=== PATIENT | male | born 1940 | race Caucasian/White ===

== ENCOUNTER 2018-10-15 05:17 | Emergency (ER) | payer MEDICARE, OTHER, SELFPAY ==
[2018-10-15 05:18] VITALS: BP 150/83; PULSE 78; RESP 16; TEMP 36.8; O2SAT 92; BMI 41.9
--- NOTE | 2018-10-15 05:19 | RAD_ITS ---
HISTORY: FELLPAIN AND DEFORMITY LT WRIST COMPARISON: None FINDINGS: XR left wrist 4 views Impacted, comminuted, Colles' fracture of the distal left radius. The main component of the fracture is transversely oriented at the metaphyseal region and an additional more distal component of the fracture extends intra-articular. Dorsal angulation and dorsal angulation of the major distal fracture fragment. Mildly displaced fracture through the base of the ulnar styloid process. No dislocation. Osteoarthritis with narrowing of the first carpometacarpal joint accompanied by periarticular ossicle formation. Possible remote ununited fracture of the dorsal margin of the carpal triquetrum. RAD/Wrist min 3 Views IMPRESSION: 1. Comminuted, intra-articular Colles' fracture of the distal left radius and mildly displaced fracture of the ulnar styloid process. 2. Possible remote ununited chip fracture of the carpal triquetrum. at 0556 Reported and signed by: Guillermo Duran MD Electronically Signed: Guillermo Duran, at 5:54 EDT Tel , Service support ,
--- NOTE | 2018-10-15 05:31 | ED.DCSUM_ITS ---
History of Present Illness Chief Complaint: Upper Extremity Injury Narrative: Patient stated that he came back from the bathroom this morning and lost his balance and fell onto his left wrist. He is having pain in the left wrist and forearm. He thinks he might of broke it. He is never injured it before. He is on Coumadin. He has a history of coronary artery disease and CABG. Denies any chest pain or shortness of breath or other symptoms. No home treatment other than putting ice on it. Current severity is moderate with movement. No significant pain at rest. Last INR was 2.2 2 weeks ago. Past Medical History - Allergies and Home Meds Allergies/Adverse Reactions: Allergies No Known Allergies Allergy (Verified 10/15/18 05:18) Primary Care Physician: Juancarlos Nielsen MD [STAFF PHYSICIAN] - Prior records reviewed: Yes Past Medical History: - - Hypertension, coronary artery disease, high cholesterol Surgical History: - Smoking Status: Former smoker Physical Exam Vital Signs/Narrative: Vital Signs Temp Pulse Resp BP Pulse Ox 10/15/18 05:18 98.3 F 78 16 150/83 H 92 General: Well nourished, Well developed, No Acute Distress Head: Normocephalic, Atraumatic Eyes: Perrl, EOMI ENT: Moist mucous membranes, No rhinorrhea Neck: Supple, Nontender Cardiovascular: Regular rate, Regular rhythm, No murmurs Respiratory: No distress, CTA bilaterally, Chest nontender Abdomen: Soft, Nontender, Nondistended, Normal bowel sounds Back: Nontender, Normal Inspection Extremities: No edema, Tenderness - Tenderness in the left wrist and left distal forearm. Positive soft tissue swelling. Distal neurovascular intact Skin: Normal color, No rash Neurological: Alert, Oriented x3, Cranial nerves II-XII grossly intact, Normal Strength, Normal Sensation Psychological: Normal affect, Normal Mood Diagnostic/Tx/Re-eval - Medical Decision Making Initial x-ray showed a intra-articular comminuted Colles' fracture with approximately 14 degrees of dorsal angulation. Discussed with orthopedics Dr. Nielsen. He asked me to do a hematoma block and reduce it. The patient cons ented to this. A 18-gauge needle was placed after his fracture region was washed with chlorhexidine. This was done in a sterile field. 8 cc of bupivacaine was placed in a hematoma block. He was placed in finger traps and the fracture was easily reduced. He has much better alignment. He is placed in a volar Ortho-Glass splint and will follow-up with orthopedics. His INR is 1.7. I wanted to make sure he was not supratherapeutic. He will adjust his Coumadin. ED Disposition - Plan for ED Patient: Diagnosis: Wrist fracture Instructions: ED Fx Colles Wrist Redu Requ Referrals: Juancarlos Nielsen MD [STAFF PHYSICIAN] -
[2018-10-15 05:54] LABS: International Normalized Ratio 1.7; Prothrombin Time (Protime)PT. 20.2 SECONDS (11.7-14.9)
--- NOTE | 2018-10-15 06:45 | RAD_ITS ---
HISTORY: post reduction. Left wrist COMPARISON: Left wrist 0530 hours FINDINGS: XR left wrist 3 views 0659 hours Comminuted, intra-articular Colles' fracture of the distal left radius status post closed reduction. Post reduction views show improved alignment with decreased dorsal angulation but persistent posterior displacement of the major distal radial fracture fragment. Redemonstration of a mildly displaced fracture through the base of the ulnar styloid process. Remote ununited fracture of the tip of the radial styloid process. Possible additional remote ununited fracture of the dorsal margin of the carpal triquetrum. RAD/Wrist min 3 Views IMPRESSION: 1. Left wrist Colles' fracture with improved alignment of the fracture status post closed reduction. Details above. at 0728 Reported and signed by: Guillermo Duran MD Electronically Signed: Guillermo Duran, at 7:27 EDT Tel , Service support ,
--- NOTE | 2018-10-15 06:51 | ED.RN ---
ASSISTED MD WITH FINGER TRAPS AND REDUCTION. PT HANDLED PROCEDURE WELL.
[2018-10-15] MEDS: Bupivacaine Mpf 0.5% 30 ML VIAL INFILT (06:53)
[2018-10-15 07:19] VITALS: BP 138/79; PULSE 67; RESP 18; O2SAT 96
== END 2018-10-15 07:26 ==
PROVIDERS: Emergency Provider Emergency Medicine; Family Provider Internal Medicine; PCP Internal Medicine
DX: S52.532A Colles' fracture of left radius, initial encounter for closed fracture (principal); I25.10 Atherosclerotic heart disease of native coronary artery without angina pectoris; Z95.1 Presence of aortocoronary bypass graft; I10 Essential (primary) hypertension; E78.00 Pure hypercholesterolemia, unspecified; Z87.891 Personal history of nicotine dependence; Z79.01 Long term (current) use of anticoagulants; Z79.899 Other long term (current) drug therapy; W18.30XA Fall on same level, unspecified, initial encounter; Y93.01 Activity, walking, marching and hiking; Y92.008 Other place in unspecified non-institutional (private) residence as the place of occurrence of the external cause; Y99.8 Other external cause status
CPT/HCPCS: 25605; 73110; 85610; 99282; A4216

== ENCOUNTER 2023-02-11 23:58 | Inpatient (IN) | payer MEDICARE, OTHER, SELFPAY ==
[2023-02-11 23:59] VITALS: BP 136/97; PULSE 88; RESP 31; TEMP 36.6; O2SAT 97; BMI 38.0
[2023-02-12] VITALS (40 sets, daily range): BP systolic 114–137; BP diastolic 54–75; PULSE 56–97; RESP 12–26; TEMP 36.1–36.6; O2SAT 10–99; BMI 35.5
--- NOTE | 2023-02-12 00:01 | RAD_ITS ---
INDICATION: Respiratory failure, bilateral rales, edema EXAMINATION/TECHNIQUE: X-RAY - XR Chest 1 View COMPARISON: None. FINDINGS: LINES/DEVICES: None. LUNGS: Patchy left basilar airspace opacity with trace bilateral effusions. No florid edema. No pneumothorax. MEDIASTINUM AND CARDIOVASCULAR STRUCTURES: Mild cardiomegaly. BONES AND SOFT TISSUES: Unremarkable. Sternotomy wires are midline and intact. RAD/Chest 1 View (Portable) IMPRESSION: Patchy left basilar atelectasis versus consolidative pneumonia. Correlate with exam. Radiographic follow-up recommended 6 weeks after treatment to ensure resolution. Cardiomegaly and sternotomy changes with trace effusions. Electronically Signed: Guillermo Evans MD at 1:01 EDT ,
[2023-02-12 00:13] LABS: Absolute Lymphocyte Count 1.38 X10^3/uL (0.83-4.51); Absolute Neutrophil Count 7.1 X10^3/uL (2.0-7.7); Basophil# 0.06 X10^3/uL; Basophil% 0.6 % (0-1); Eosinophil# 0.22 X10^3/uL; Eosinophils% 2.3 % (0-5); Hemoglobin 12.8 g/dL (13.0-16.5); Lymphocyte # 1.38 X10^3/ul (0.83-4.51); Lymphocyte % 14.2 % (19-41); Mean Corpuscular Hgb 29.1 pg (27.0-32.0); Mean Corpuscular Volume 90.9 fL (80-94); Mean Platelet Vol. 9.8 fl (6.2-12.0); Monocyte# 0.97 X10^3/uL; Monocyte% 9.9 % (0-10); NRBC Flagged by Analyzer 0 % (0-5); Neutrophil # 7.07 X10^3/uL (2.7-7.7); Neutrophil % 72.5 % (47-70); Platelet Count 190 K/mm3 (150-450); RBC Distribution Width CV 15.9 % (11.6-14.6); RBC Distribution Width SD 52.6 fl (35.1-43.9); White Blood Count 9.8 K/mm3 (4.4-11.0)
[2023-02-12 00:24] LABS: International Normalized Ratio 1.7; Prothrombin Time (Protime)PT. 20.3 SECONDS (11.7-14.9)
[2023-02-12 00:32] LABS: Anion Gap 6 (5-15); BUN 22 mg/dL (7-18); BUN/Creat Ratio 20.8 RATIO (10-20); Calcium,Total 8.7 mg/dL (8.5-10.1); Chloride 105 mmol/L (98-107); Creatinine, Serum 1.06 mg/dL (0.70-1.30); EST Glomerular Filtration Rate 71 mL/min (>60); Est Glom Filt Rate - Afr Amer 86 mL/min (>60); Estimated Creatinine Clearance 45.77 ml/min; Glucose 116 mg/dL (74-106); Potassium 3.5 mmol/L (3.5-5.1); Sodium Level 138 mmol/L (136-145); Troponin-I HS 20 pg/mL (3.0-78.0)
[2023-02-12] MEDS: Furosemide 40 MG/4 ML Vial IV ×3 (00:35→17:36)
--- NOTE | 2023-02-12 00:42 | EDS_ITS ---
HPI History of Present Illness Chief Complaint: Shortness of Breath Detail of Chief Complaint: Shortness of breath that started last evening. Informant: patient and EMS Onset/Context/Timing Onset: Yesterday Context: sudden Timing: Continuous and Waxes and wanes Quality: Positive for Dyspnea on exertion, Orthopnea and PND; Negative for Wheezing Current Severity: Moderate Maximum Severity: Severe Worsened by: Exertion and Lying flat Relieved by: Nothing Associated Symptoms cough; Negative for rhinorrhea, post nasal drip, ear pain, fever, sore throat, subjective, chills, sweats, clear sputum, white sputum, yellow sputum or green sputum Chest Pain: Positive for None Narrative Narrative: Patient is an 82-year-old male with history of congestive heart failure, hypertension, hypercholesterolemia, coronary artery bypass surgery x5 vessels, GERD, on and anticoagulant because of heart disease who presents with shortness of breath that started the past 24 hours. He has had significant swelling of his legs with increased orthopnea. He sleeps in a chair. He slept in a chair for some time; however, he reports needing to be more upright. He denies chest discomfort of any type. His pulse ox when squad arrived to his residence was 70% on room air. He arrived with a nonrebreather mask on and saturation of 96%. Patient denies headache, visual, ocular auditory symptoms. Patient denies infectious respiratory symptoms. Patient denies GI symptoms. Patient denies urologic symptoms. Patient denies neuro checks times. He reports he is on a diet however there is none listed on his medication list. He apparently is scheduled to see Dr. Marek Diaz. PE Risk Factors: Negative for Cancer, OCP + Smoking + > 35, Prior DVT or PE, Recent immobilization, Recent surgery or Recent travel Prior similar symptoms: No Recent Illness/Hospitalization: No [facility] Medical History (Updated 02/12/23 @ 02:[address] Suman Remy MD) ASHD (arteriosclerotic heart disease) Atrial fibrillation CHF (congestive heart failure) Glucose intolerance (impaired glucose tolerance) Meniere disease Mixed hyperlipidemia Myocardial infarct Osteoarthritis Home Medications amlodipine 10 mg tablet 10 mg PO DAILY 10/15/18 [History Last Taken Unknown] fluticasone propionate 50 mcg/actuation nasal spray,suspension 1 spray intranasal DAILY 10/15/18 [History Last Taken Unknown] lisinopril 40 mg tablet 40 mg PO DAILY 10/15/18 [History Last Taken Unknown] metoprolol succinate 100 mg tablet,extended release 24 hr 100 mg PO DAILY 10/15/18 [History Last Taken Unknown] nitroglycerin 0.4 mg sublingual tablet 0.4 mg sublingual PRN PRN CHEST PAIN 10/15/18 [History Last Taken Unknown] omeprazole 20 mg capsule,delayed release 20 mg PO DAILY 10/15/18 [History Last Taken Unknown] warfarin 5 mg tablet () 5 mg PO DAILY 10/15/18 [History Last Taken Unknown] escitalopram oxalate 10 mg tablet 10 mg PO DAILY 02/12/23 [History Last Taken Unknown] furosemide 40 mg tablet 40 mg PO DAILY 02/12/23 [History Last Taken Unknown] pravastatin 40 mg tablet 40 mg PO DAILY 02/12/23 [History Last Taken Unknown] triamterene 37.5 mg-hydrochlorothiazide 25 mg tablet 1 tab PO DAILY 02/12/23 [History Last Taken Unknown] Allergy/AdvReac Type Severity Reaction Status Date / Time cephalexin [From Keflex] AdvReac Mild Diarrhea Verified 02/12/23 00:04 labetalol [From Trandate] AdvReac Mild Angioedema Verified 02/12/23 00:56 prochlorperazine AdvReac Mild Other Verified 02/12/23 00:56 [From Compazine] ibuprofen AdvReac Other Verified 02/12/23 00:56 Surgical History no surgical history no surgical history (5 vessel bypass surgery) Social History Smoking Status: Never smoker ROS ROS ED Constitutional Constitutional ED: Denies chills, fever(s), sweats or weight loss Eyes Eyes: Denies blurry vision, change in vision or diplopia ENT ENT ED: Denies ear pain, rhinorrhea or sore throat Cardiovascular Cardiovascular: Reports orthopnea and paroxysmal nocturnal dyspnea; Denies chest pain, palpitations or racing heartbeat Respiratory/Chest Respiratory/Chest: Reports dyspnea, dyspnea on exertion, orthopnea and paroxysmal nocturnal dyspnea; Denies cough Gastrointestinal Gastrointestinal: Denies abdominal pain, constipation, diarrhea, melena, nausea or vomiting Genitourinary Genitourinary ED: Denies dysuria, hematuria or urinary frequency Musculoskeletal Musculoskeletal: Denies arthralgias, back pain, myalgias or neck pain Integumentary Denies Abrasions or rash Neurologic Neurologic: Denies headache(s), paresthesias or weakness Endocrine Endocrinology: Denies cold intolerance or heat intolerance Hematologic/Lymphatic Hematologic/Lymphatic: Denies easy bleeding or easy bruising EXAM Physical Exam Const Vital Signs: 02/11/23 23:59 02/12/23 00:04 02/12/23 00:06 Temperature 97.8 F Temperature Source Temporal Pulse Rate 88 81 Respiratory Rate 31 H 26 H Respiratory Effort Short of Breath Respiratory Depth Shallow Respiratory Pattern Tachypnea Tachypnea Blood Pressure 136/97 H Blood Pressure Mean 110 Blood Pressure Source Blood Pressure Position Blood Pressure Location Pulse Ox 97 96 Oxygen Delivery Method Non-Rebreather Nasal Cannula Oxygen Flow Rate (L/min) 10 97 Fraction of Inspired Oxygen (FIO2) 40 02/12/23 00:33 02/12/23 00:43 02/12/23 00:40 Temperature Temperature Source Pulse Rate 71 71 Respiratory Rate 22 H 21 H Respiratory Effort Respiratory Depth Respiratory Pattern Tachypnea Blood Pressure 122/63 H 124/70 H Blood Pressure Mean 82 88 Blood Pressure Source Monitor Blood Pressure Position Sitting Blood Pressure Location Left Arm Pulse Ox 98 97 Oxygen Delivery Method Bi-pap Oxygen Flow Rate (L/min) Fraction of Inspired Oxygen (FIO2) 30 02/12/23 01:00 02/12/23 01:38 Temperature Temperature Source Pulse Rate 67 65 Respiratory Rate 20 H 16 Respiratory Effort Respiratory Depth Respiratory Pattern Blood Pressure 127/62 H 116/66 Blood Pressure Mean 83 82 Blood Pressure Source Blood Pressure Position Blood Pressure Location Pulse Ox 98 94 Oxygen Delivery Method Bi-pap Bi-pap Oxygen Flow Rate (L/min) Fraction of Inspired Oxygen (FIO2) Positive well nourished, well developed and obese Constitutional Narrative: When the nonrebreather mask was removed to place on our monitor and obtain EKG patient's breathing became labored. He was gasping. General Appearance ED: well developed; Negative for NAD or pallor Nutritional Appearance: obese HEENT Reports moist mucous membranes atraumatic and trauma Eyes PERRL and EOMs intact bilaterally General Eye ED: Negative for pale conjunctiva or scleral icterus Neck no lymphadenopathy, supple, no meningeal signs and no JVD Neck Narrative: Unable to determine if patient has JVD due to body habitus. Resp No normal respiratory effort and No clear to auscultation bilaterally Auscultation: rales diffuse (Bilaterally) Cardio regular rate, S1 normal heart sound, S2 normal heart sound and no murmurs Rhythm: abnormal rhythm ectopic beats GI non-tender, non-distended and no masses Auscultation: normoactive bowel sounds Palpation: soft Back/Spine no CVA tenderness Extremity Negative for normal to inspection Extremity Narrative: Patient has marked pitting edema of both legs and feet. Unable to appreciate DP pulse because of the amount Eli. General Extremety ED: Yes edema; Negative for tenderness General Extremity: edema Neuro oriented x3, CN's II-XII intact bilaterally and no sensory deficits noted Wayne Coma Scale: document GCS findings Spontaneous Obeys Commands Oriented 15 Sensorium / Orientation: alert Psych mental status grossly normal Skin no wounds and skin turgor normal General Skin Exam: Negative for jaundice or pallor Lesions: no lesions Rashes: no rashes MDM MDM MDM Narrative Medical decision making narrative: Clinically patient has respiratory failure due to congestive heart failure. Will obtain EKG to evaluate for acute ischemia. Troponin was ordered as well. CBC to rule out anemia. Clinically does not appear anemic. BMP to assess renal function. PT/INR since he is on Coumadin. Chest x-ray to confirm suspicion of congestive heart failure. He was placed on BiPAP and nitroglycerin drip. Is placed on nitroglycerin drip for preload reduction. History & Record Review Discussion w/independent historian: Patient Lab Data Attestation: I reviewed the patient's lab results. Lab results narrative: White count, differential are unremarkable. There is slight elevation of new wheels. Basic metabolic panel is unremarkable. Troponin is 20. BNP is pending. Labs: Laboratory Results - last 24 hr 02/12/23 00:07 WBC 9.8 RBC 4.40 L Hgb 12.8 L Hct 40.0 MCV 90.9 MCH 29.1 MCHC 32.0 RDW Std Deviation 52.6 H RDW Coeff of Kate 15.9 H Plt Count 190 MPV 9.8 Immature Gran % (Auto) 0.500 Neut % (Auto) 72.5 H Lymph % (Auto) 14.2 L [place] % (Auto) 9.9 Eos % (Auto) 2.3 Baso % (Auto) 0.6 Absolute Neuts (auto) 7.1 Absolute Lymphs (auto) 1.38 Nucleated RBC % 0 PT 20.3 H INR 1.7 Sodium 138 Potassium 3.5 Chloride 105 Carbon Dioxide 27.0 Anion Gap 6 BUN 22 H Creatinine 1.06 Estim Creat Clear Calc 45.77 Est GFR (MDRD) Af Amer 86 Est GFR (MDRD) Non-Af 71 BUN/Creatinine Ratio 20.8 H Glucose 116 H Calcium 8.7 Troponin I High Sens 20 B-Natriuretic Peptide 933.9 H Radiography Chest X-Ray - ED: 1 View and Read by ED Physician (Borderline cardiomegaly. Median sternotomy wires noted. Evidence of heart failure. Osseous structures are unremarkable.) Diagnostic Testing: Clinical Impression(s) from Imaging Studies Chest X-Ray 02/12/23 00:01 IMPRESSION: Patchy left basilar atelectasis versus consolidative pneumonia. Correlate with exam. Radiographic follow-up recommended 6 weeks after treatment to ensure resolution. Cardiomegaly and sternotomy changes with trace effusions. Electronically Signed: Guillermo Evans MD at 1:01 EDT Reading Location ID and State: [facility] / [place] Tel , Service support , The intervention of the x-ray by radiologist reveals cardiomegaly with trace effusions. He felt there was basilar atelectasis versus consolidation. Clinically patient is in heart failure with orthopnea, PND, pedal edema and rales noted the entire right and left thorax. In my opinion patient is in congestive heart failure and does not have pneumonia. EKG Initial EKG: Attestation: I personally reviewed and interpreted this EKG as follows: Interpretation: Sinus Rhythm (Out of rate is 79. There is decreased anterior force. MN interval is 182 ms. Cures duration 94 ms. QT duration 432 ms. [place] is normal. There are frequent premature ventricular complexes noted. There is no obvious acute ischemic changes noted.) Treatment and Re-Evaluation :: Patient was reassessed at 0211. Patient's breathing has improved. He is no longer labored. Rate is 19. Oxygen saturation is 93 to 94%. Heart rate has improved. Patient reports he feels better. Critical Care Time Critical Care Time: Yes Critical care time (excluding procedures): 30-74 minutes (34), Including time spent: (History, physical, documentation, discussion with paramedics, interpretation of laboratory results and images, treatment for acute decompensation of congestive heart failure with BiPAP and nitro drip.), Discussing w/Patient &/or Family/[facility], Discussing w/Consultants and Arranging Admission or Transfer Discharge Plan Triage Chief Complaint: Shortness of Breath ED Provider: Suman Remy Dx/Rx/DC Orders Clinical Impression: Acute respiratory failure with hypoxia, Hypertension, Hyperlipidemia, Congestive heart failure, History of coronary artery disease Prescriptions: No Action metoprolol succinate 100 MG tablet extended release 24 hr 100 mg PO DAILY amlodipine 10 MG tablet 10 mg PO DAILY warfarin [Jantoven] 5 MG tablet 5 mg PO DAILY nitroglycerin 0.4 MG tablet, sublingual 0.4 mg sublingual PRN PRN (Reason: CHEST PAIN) omeprazole 20 MG capsule 20 mg PO DAILY lisinopril 40 MG tablet 40 mg PO DAILY fluticasone propionate 1 SPRAY spray,suspension 1 spray intranasal DAILY escitalopram oxalate 10 mg tablet 10 mg PO DAILY Patient Comments: Take 1 tablet by mouth once daily. furosemide 40 mg tablet 40 mg PO DAILY Patient Comments: Take 1 tablet by mouth once daily. pravastatin 40 mg tablet 40 mg PO DAILY Patient Comments: Take 1 tablet by mouth daily at bedtime. For cholesterol triamterene-hydrochlorothiazid 37.5-25 mg tablet 1 tab PO DAILY Patient Comments: TAKE 1 TABLET BY MOUTH DAILY Primary Care Provider: Florentino Bernard Referrals: Florentino Bernard MD [Primary Care Provider] - Disposition Disposition: Acute Care Hospital [facility]
[2023-02-12] MEDS: Nitroglycerin Infusion 250 ML 6 MG CONT INF (00:43)
[2023-02-12 01:59] LABS: BNP,B-Type NATRIURETIC PEPTIDE 933.9 pg/mL (0-100)
--- NOTE | 2023-02-12 02:12 | PCM.HP.STD ---
HPI - General General Date of Admission: 02/12/23 Date of Service: 02/12/23 Chief Complaint: Shortness of breath HPI Narrative DESI SANDERS, is a 82 M with a significant history of CAD status post CABG; congestive heart failure; atrial fibrillation and M?ni?re's disease who presented with a 2-day history of intermittent shortness of breath and progressively worsening shortness of breath that started 2 days before presentation. Associated with symptoms is swelling of his bilateral legs that has been going on for about 1 week. Also patient has had paroxysmal nocturnal dyspnea. Patient has chronic orthopnea. Patient was brought to the hospital by paramedics. Reportedly when paramedics got to patient both patient was cyanotic. Patient was placed on nonrebreather and brought to the emergency department. At the emergency department because patient hypoxia was persistent patient was transitioned onto BiPAP. [facility] Medical History (Updated 02/12/23 @ 03:[address] Kyle Werner MD) ASHD (arteriosclerotic heart disease) Atrial fibrillation CHF (congestive heart failure) Glucose intolerance (impaired glucose tolerance) Meniere disease Mixed hyperlipidemia Myocardial infarct Osteoarthritis Home Medications amlodipine 10 mg tablet 10 mg PO DAILY 10/15/18 [History Last Taken Unknown] fluticasone propionate 50 mcg/actuation nasal spray,suspension 1 spray intranasal DAILY 10/15/18 [History Last Taken Unknown] lisinopril 40 mg tablet 40 mg PO DAILY 10/15/18 [History Last Taken Unknown] metoprolol succinate 100 mg tablet,extended release 24 hr 100 mg PO DAILY 10/15/18 [History Last Taken Unknown] nitroglycerin 0.4 mg sublingual tablet 0.4 mg sublingual PRN PRN CHEST PAIN 10/15/18 [History Last Taken Unknown] omeprazole 20 mg capsule,delayed release 20 mg PO DAILY 10/15/18 [History Last Taken Unknown] warfarin 5 mg tablet (Jultoven) 5 mg PO DAILY 10/15/18 [History Last Taken Unknown] escitalopram oxalate 10 mg tablet 10 mg PO DAILY 02/12/23 [History Last Taken Unknown] furosemide 40 mg tablet 40 mg PO DAILY 02/12/23 [History Last Taken Unknown] pravastatin 40 mg tablet 40 mg PO DAILY 02/12/23 [History Last Taken Unknown] triamterene 37.5 mg-hydrochlorothiazide 25 mg tablet 1 tab PO DAILY 02/12/23 [History Last Taken Unknown] Allergy/AdvReac Type Severity Reaction Status Date / Time cephalexin [From Keflex] AdvReac Mild Diarrhea Verified 02/12/23 00:04 labetalol [From Trandate] AdvReac Mild Angioedema Verified 02/12/23 00:56 prochlorperazine AdvReac Mild Other Verified 02/12/23 00:56 [From Compazine] ibuprofen AdvReac Other Verified 02/12/23 00:56 Family History (Updated 02/12/23 @ 03:[address] Kyle Werner MD) Other Colon cancer Heart disease Surgical History (Updated 02/12/23 @ 03:[address] Kyle Werner MD) Hx of CABG Surgical History no surgical history Social History Smoking Status: Never smoker ROS ROS Narrative Pertinent positives and pertinent negatives as noted in HPI. All other systems were reviewed and are negative Vital Signs Vital Signs Vital Signs: 02/11/23 23:59 02/12/23 00:04 02/12/23 00:06 Temperature 97.8 F Temperature Source Temporal Pulse Rate 88 81 Respiratory Rate 31 H 26 H Respiratory Effort Short of Breath Respiratory Depth Shallow Respiratory Pattern Tachypnea Tachypnea Blood Pressure 136/97 H Blood Pressure Mean 110 Blood Pressure Source Blood Pressure Position Blood Pressure Location Pulse Ox 97 96 Oxygen Delivery Method Non-Rebreather Nasal Cannula Oxygen Flow Rate (L/min) 10 97 Fraction of Inspired Oxygen (FIO2) 40 02/12/23 00:33 02/12/23 00:43 02/12/23 00:40 Temperature Temperature Source Pulse Rate 71 71 Respiratory Rate 22 H 21 H Respiratory Effort Respiratory Depth Respiratory Pattern Tachypnea Blood Pressure 122/63 H 124/70 H Blood Pressure Mean 82 88 Blood Pressure Source Monitor Blood Pressure Position Sitting Blood Pressure Location Left Arm Pulse Ox 98 97 Oxygen Delivery Method Bi-pap Oxygen Flow Rate (L/min) Fraction of Inspired Oxygen (FIO2) 30 02/12/23 01:00 02/12/23 01:38 Temperature Temperature Source Pulse Rate 67 65 Respiratory Rate 20 H 16 Respiratory Effort Respiratory Depth Respiratory Pattern Blood Pressure 127/62 H 116/66 Blood Pressure Mean 83 82 Blood Pressure Source Blood Pressure Position Blood Pressure Location Pulse Ox 98 94 Oxygen Delivery Method Bi-pap Bi-pap Oxygen Flow Rate (L/min) Fraction of Inspired Oxygen (FIO2) Weight Weight: 100.4 kg Body Mass Index (BMI) 38.0 Physical Exam Narrative Physical exam: General: Well-nourished, well-developed. Head: Normocephalic, atraumatic, no tenderness Eyes: Vision is grossly intact. EOMI ENT, no trauma, moist mucous membranes, no rhinorrhea Neck: Nontender, No thyromegaly. CVS: Regular rate and rhythm. S1-S2 present. No murmur, gallop or rub. Respiratory : Fine Rales bilaterally and coarse Rales at the bases. Abdomen: Obese abdomen. Soft, nontender. : Deferred Back: Nontender, no CVA tenderness. Extremities: Bilateral lower extremity edema. Nontender full range of motion, no trauma Skin: Normal color, no trauma, abrasions Neuro: Alert, oriented, cranial nerves II through XII grossly intact. Psychiatry: Normal mood. Normal affect. Not depressed. Not anxious. Results Lab / Micro Data 02/12/23 00:07 02/12/23 00:07 Labs: Laboratory Results - last 24 hr 02/12/23 00:07: WBC 9.8, RBC 4.40 L, Hgb 12.8 L, Hct 40.0, MCV 90.9, MCH 29.1, MCHC 32.0, RDW Std Deviation 52.6 H, RDW Coeff of Kate 15.9 H, Plt Count 190, MPV 9.8, Immature Gran % (Auto) 0.500, Neut % (Auto) 72.5 H, Lymph % (Auto) 14.2 L, [place] % (Auto) 9.9, Eos % (Auto) 2.3, Baso % (Auto) 0.6, Absolute Neuts (auto) 7.1, Absolute Lymphs (auto) 1.38, Nucleated RBC % 0, PT 20.3 H, INR 1.7, Sodium 138, Potassium 3.5, Chloride 105, Carbon Dioxide 27.0, Anion Gap 6, BUN 22 H, Creatinine 1.06, Estim Creat Clear Calc 45.77, Est GFR (MDRD) Af Amer 86, Est GFR (MDRD) Non-Af 71, BUN/Creatinine Ratio 20.8 H, Glucose 116 H, Calcium 8.7, Troponin I High Sens 20, B-Natriuretic Peptide 933.9 H Radiology Impression Chest X-Ray 02/12/23 00:01 IMPRESSION: Patchy left basilar atelectasis versus consolidative pneumonia. Correlate with exam. Radiographic follow-up recommended 6 weeks after treatment to ensure resolution. Cardiomegaly and sternotomy changes with trace effusions. Electronically Signed: Guillermo Evans MD at 1:01 EDT , Assessment & Plan Assessment/Plan (1) Congestive heart failure: QUALIFIERS: Heart failure chronicity: acute on chronic Heart failure type: unspecified Qualified Code(s): I50.9 - Heart failure, unspecified (2) Acute respiratory failure with hypoxia: (3) Hypertension: QUALIFIERS: Hypertension type: unspecified Qualified Code(s): I10 - Essential (primary) hypertension PLAN: Plan Acute hypoxemic respiratory failure Likely secondary to exacerbation of heart failure (reduced or preserved undefined.) Place on monitored bed on PCU stepdown Weight on admission to the floor; and then daily Strict I&O's Impression of chest x-ray by radiology:Patchy left basilar atelectasis versus consolidative pneumonia. Correlate with exam. Radiographic follow-up recommended 6 weeks after treatment to ensure resolution. Chest x-ray interpreted myself showed bilateral infiltrates with blunting of bilateral costophrenic angles. Cardiomegaly and sternotomy changes with trace effusions. BNP on presentation was 933.9. Reports that he had an echocardiogram in less than 1 week. Order to obtain echo from [facility] Physician placed. Monitor electrolytes and renal function Trend blood pressure Beta-armond and BUZZ inhibitor continued. Home p.o. Lasix held. IV Lasix ordered. Potassium supplementation ordered. On presentation potassium was 3.5. Trend. Buzz wrap to bilateral lower extremities Fluid restriction of 1500 mls daily Continue on BiPAP started emergency department. When off BiPAP transition to cardiac diet. Hypertension Stable on nitroglycerin drip started at the emergency department, continue. Home amlodipine continued. Lisinopril and metoprolol continued. Triamterene and hydrochlorothiazide continued. Trend blood pressures. Paroxysmal A-fib/hypercoagulable state due to A-fib EKG showed sinus rhythm with PVCs on presentation. INR is subtherapeutic. Escalate dose of Coumadin. Lovenox twice daily ordered. Trend INR. DVT prophylaxis: Lovenox and Coumadin as above. Time spent in the patient's overall evaluation,decision-making process, review of diagnostic data, adjustment of management, discussion with other providers, nursing nursing and ancillary staff involved in patient's care documentation, 65 minutes. Charges/Coding Visit Charges Inpatient E&M: 87847 Init Hosp L3
[2023-02-12 04:25] LABS: Hematocrit 38.7 % (40-54); Hemoglobin 12.4 g/dL (13.0-16.5); Mean Corpuscular Volume 90.4 fL (80-94); Mean Platelet Vol. 9.9 fl (6.2-12.0); Platelet Count 183 K/mm3 (150-450); RBC Distribution Width CV 15.7 % (11.6-14.6); RBC Distribution Width SD 51.5 fl (35.1-43.9); Red Blood Count 4.28 M/mm3 (4.6-6.2); White Blood Count 8.4 K/mm3 (4.4-11.0)
[2023-02-12 04:37] LABS: International Normalized Ratio 1.7; Prothrombin Time (Protime)PT. 19.8 SECONDS (11.7-14.9)
[2023-02-12 04:45] LABS: Troponin-I HS 22 pg/mL (3.0-78.0)
[2023-02-12] MEDS: Enoxaparin 100 MG/ML Syringe SC ×2 (05:24→17:36)
[2023-02-12 06:29] LABS: ALB/GLOB Ratio 0.9 RATIO (0.9-2.4); AST(SGOT) 12 U/L (15-37); Alanine Aminotransfer ALT/SGPT 16 U/L (16-61); Alkaline Phosphatase 76 U/L (45-117); Anion Gap 7 (5-15); BUN 20 mg/dL (7-18); BUN/Creat Ratio 19.4 RATIO (10-20); Calcium,Total 8.1 mg/dL (8.5-10.1); Chloride 107 mmol/L (98-107); Creatinine, Serum 1.03 mg/dL (0.70-1.30); EST Glomerular Filtration Rate 74 mL/min (>60); Est Glom Filt Rate - Afr Amer 89 mL/min (>60); Estimated Creatinine Clearance 48.93 ml/min; Globulin 3.4 g/dL (2.2-4.2); Glucose 112 mg/dL (74-106); Potassium 3.3 mmol/L (3.5-5.1); Protein, Total 6.4 g/dL (6.4-8.2); Sodium Level 141 mmol/L (136-145); Troponin-I HS 19 pg/mL (3.0-78.0)
[2023-02-12] MEDS: Potassium Chloride Oral Tablet 20 MEQ 40 MEQ PO (09:33)
[2023-02-12] MEDS: Triamterene 37.5MG/Hctz 25MG Capsule 1 CAP PO (09:33)
[2023-02-12] MEDS: Lisinopril 40 MG Tablet PO (09:33)
[2023-02-12] MEDS: Pravastatin 40 MG Tablet PO (09:33)
[2023-02-12] MEDS: amLODIPine 10 MG Tablet PO (09:34)
[2023-02-12] MEDS: Pantoprazole Sodium 20 MG Tablet PO (09:34)
[2023-02-12] MEDS: Metoprolol(XL)Succ 100 MG Tablet PO (09:34)
[2023-02-12] MEDS: Fluticasone 0.05% 1 SPRAY NASAL.SRY NASAL (09:35)
[2023-02-12] MEDS: Escitalopram Oxalate 10 MG Tablet PO (09:35)
[2023-02-12 10:17] LABS: Troponin-I HS 18 pg/mL (3.0-78.0)
--- NOTE | 2023-02-12 10:30 | CASEMGMT ---
DAMON JOSEPH Face to Face with patient for initial transition planning/care coordination assessment. RN OPAL introduced self and role at [facility]. Patient lying in bed, alert and oriented. Patient willing to participate in assessment and is able to answer all questions appropriately. Care providers, pharmacy, and demographics verified. Patient wishes to discharge home, will monitor progress with care, possible HHC at discharge. Patient states he has no further needs or concerns at this time. CM to follow for discharge planning needs that may arise. PCP: Marco Antonio Specialists: none Preferred Pharmacy: [facility] Insurance: [facility] [place] Pres[place] Benefit: yes Living Will/HPOA: yes, Rosa Kuo LNOK: Living Arrangements: Patient lives with in a 2 story home with bed and bath on first floor, 2 steps to enter the home. Patient states he is independent at home. Transportation: self, DME/HHC: Patient has rasied toilet, cane, and walker at home. Patient is currently requiring oxygen, no home oxygen, will monitor for home oxygen at discharge. Patient prefers [employer] for DME. No previous HHC or SNF Disposition Plan: Patient to discharge home with family support and follow-up plans in place. Will monitor for home oxygen and HHC. Cecilia FONG, RN, CM
--- NOTE | 2023-02-12 16:43 | PCM.HOSP.N ---
Hospitalist Note Seen and examined today, I talked with his daughter and his who are in the room at the time my examination this afternoon, patient is currently on 4 L of oxygen via nasal cannula and appears comfortable. Echocardiogram which was done early in January of this year by his PCP showed a decreased EF at 40 to 45%, severe pulmonary hypertension, and moderate mitral regurg. I have elected to take the patient off his nitroglycerin drip at this time, I have added Aldactone and he will remain on IV Lasix, metoprolol, and lisinopril. Daughter had a question about the patient undergoing a heart cath during this admission, I told her that it was not necessary at this time and that his congestive heart failure needs to be stabilized and that I would recommend that he undergo a stress test when he was in stable condition in the near future. Patient does have an appointment with Dr. Diaz in March of this year. Patient's labs will be rechecked tomorrow.
[2023-02-12] MEDS: Spironolactone 25 MG Tablet PO (17:35)
[2023-02-12] MEDS: 0.9% Saline Lock 10 ML Syringe IV (17:40)
[2023-02-13] VITALS (16 sets, daily range): BP systolic 111–144; BP diastolic 60–105; PULSE 62–84; RESP 12–22; TEMP 36.1–37; O2SAT 88–97; BMI 35.4
[2023-02-13] MEDS: Albuterol 2.5 MG/3 ML VIAL.NEB. INHALATION (00:01)
[2023-02-13] MEDS: Enoxaparin 100 MG/ML Syringe SC ×2 (05:09→17:50)
[2023-02-13 05:49] LABS: International Normalized Ratio 1.6; Prothrombin Time (Protime)PT. 18.7 SECONDS (11.7-14.9)
[2023-02-13 06:10] LABS: Anion Gap 8 (5-15); BUN 22 mg/dL (7-18); BUN/Creat Ratio 21.6 RATIO (10-20); Calcium,Total 8.7 mg/dL (8.5-10.1); Chloride 104 mmol/L (98-107); Creatinine, Serum 1.02 mg/dL (0.70-1.30); EST Glomerular Filtration Rate 74 mL/min (>60); Est Glom Filt Rate - Afr Amer 90 mL/min (>60); Estimated Creatinine Clearance 49.41 ml/min; Glucose 102 mg/dL (74-106); Potassium 3.5 mmol/L (3.5-5.1); Sodium Level 140 mmol/L (136-145)
[2023-02-13] MEDS: Fluticasone 0.05% 1 SPRAY NASAL.SRY NASAL (08:21)
[2023-02-13] MEDS: Escitalopram Oxalate 10 MG Tablet PO (08:22)
[2023-02-13] MEDS: Lisinopril 40 MG Tablet PO (08:22)
[2023-02-13] MEDS: Potassium Chloride Oral Tablet 20 MEQ 40 MEQ PO (08:22)
[2023-02-13] MEDS: amLODIPine 10 MG Tablet PO (08:22)
[2023-02-13] MEDS: Pantoprazole Sodium 20 MG Tablet PO (08:22)
[2023-02-13] MEDS: Pravastatin 40 MG Tablet PO (08:22)
[2023-02-13] MEDS: Metoprolol(XL)Succ 100 MG Tablet PO (08:22)
[2023-02-13] MEDS: Furosemide 40 MG/4 ML Vial IV (08:23)
[2023-02-13] MEDS: Spironolactone 25 MG Tablet PO (08:23)
--- NOTE | 2023-02-13 08:55 | RAD_ITS ---
INDICATION: chf EXAMINATION/TECHNIQUE: X-RAY - XR Chest 2 Views COMPARISON: February 12, 2023 FINDINGS: LINES/DEVICES: None. LUNGS: There is persistent bibasilar airspace disease. There is mild pulmonary vascular congestion. There is a small left pleural effusion. No pneumothorax. MEDIASTINUM AND CARDIOVASCULAR STRUCTURES: Heart is enlarged. Central airways and mediastinal contour are unremarkable. BONES AND SOFT TISSUES: Unremarkable. RAD/Chest PA and Lateral IMPRESSION: Stable appearing bibasilar airspace disease and cardiomegaly. Stable mild pulmonary vascular congestion. Stable small left effusion. Electronically Signed: Enzo Singh, at 9:07 EDT ,
[2023-02-13] MEDS: Furosemide 500 MG in Empty Viaflex 50 mL 1 EACH CONT INF (14:54)
[2023-02-13] MEDS: 0.9% Saline Lock 10 ML Syringe IV (15:02)
--- NOTE | 2023-02-13 17:51 | PN.HOSP_ITS ---
Reason for Visit Reason for Visit: Diagnoses Essential (primary) hypertension (02/12/23) Heart failure, unspecified (02/12/23) Acute respiratory failure with hypoxia (02/12/23) Subjective Subjective Patient was seen and examined today, this morning he was on 6 L of nasal cannula oxygen, I made a determination at that time to place him on continuous IV Lasix. Patient's chest x-ray continues to show vascular congestion. Objective Data Objective Data Vital Signs: Vital Signs Temp Pulse Resp BP Pulse Ox O2 Del Method O2 Flow Rate 98.0 F 69 15 119/61 94 Nasal Cannula 4 02/13/23 14:51 02/13/23 14:51 02/13/23 14:51 02/13/23 14:51 02/13/23 15:13 02/13/23 15:13 02/13/23 15:13 FiO2 35 02/13/23 04:09 Oxygen Flow Rate (L/min) 4 Oxygen Delivery Method Nasal Cannula Weight: 96.4 kg Body Mass Index (BMI) 35.4 Intake & Output: Intake and Output for Last 24 Hours 02/11/23 02/12/23 02/13/23 23:59 23:59 23:59 Intake Total 590.3 / 590.3 480 / 480 Output Total 2400 / 2400 1250 / 1250 Balance -1809.7 / -1809.7 -770 / -770 Lab / Micro Data 02/12/23 04:19 02/13/23 05:30 Labs: Laboratory Results - last 24 hr 02/13/23 05:30: PT 18.7 H, INR 1.6, Sodium 140, Potassium 3.5, Chloride 104, Carbon Dioxide 28.0, Anion Gap 8, BUN 22 H, Creatinine 1.02, Estim Creat Clear Calc 49.41, Est GFR (MDRD) Af Amer 90, Est GFR (MDRD) Non-Af 74, BUN/Creatinine Ratio 21.6 H, Glucose 102, Calcium 8.7 Radiography Diagnostic Testing: Radiology Impression Chest X-Ray 02/13/23 08:55 IMPRESSION: Stable appearing bibasilar airspace disease and cardiomegaly. Stable mild pulmonary vascular congestion. Stable small left effusion. Electronically Signed: Enzo Singh, at 9:07 EDT , Physical Exam Const alert, oriented x3, no apparent distress and average body habitus General Appearance: cooperative, well kempt and well developed Orientation / Consciousness: awake, oriented to person, oriented to place and oriented to time HEENT normocephalic, head/scalp atraumatic and moist oral mucous membranes Eyes PERRL, EOMs intact bilaterally and conjunctivae normal Neck supple, no JVD, thyroid normal and no carotid bruits General: trachea midline Resp normal respiratory effort, no retractions and no use of accessory muscles Resp Narrative: Decreased breath sounds were noted bilaterally over the lower lung field Auscultation: rales localized (Over the lower lobes bilaterally); Negative for rhonchi or wheezes Cardio regular rate, regular rhythm, S1 normal heart sound, S2 normal heart sound, no rub and no gallops Cardio Narrative: Extrasystolic beats are noted GI normal to inspection, nondistended, normoactive bowel sounds, soft to palpation, non-tender and non-distended Extremity Extremity Narrative: Generalized lower leg edema is noted bilaterally Skin no rashes or lesions noted General Skin Exam: no breakdown Neuro oriented x3, CN's II-XII intact bilaterally, moves all extremities, no focal motor deficits and no sensory deficits noted Sensorium / Orientation: awake, alert, oriented to person, oriented to place and oriented to time Speech: speech normal Psych affect normal Assessment & Plan Assessment/Plan (1) Congestive heart failure: QUALIFIERS: Heart failure type: unspecified Heart failure chronicity: acute on chronic Qualified Code(s): I50.9 - Heart failure, unspecified PLAN: Plan 1. Acute on chronic systolic congestive heart failure-continue MAINA inhibitor, beta-armond, IV diuresis, and Aldactone at this time #2 acute hypoxic respiratory failure-secondary to #1, patient's pulse ox will continue to be monitored, patient's oxygen demand at the time of this dictation has not dropped to 4 L. #3 pulmonary hypertension-IV diuresis we will continue #4 coronary artery disease by history-patient has a past history of coronary artery bypass grafting, I talked to his family practice physician yesterday and besides his echocardiogram which was performed the first part of January of this year, the family practitioner does not have record of a previous echocardiogram. Patient may need to further work-up when he has stabilized such as an outpatie nt stress test. #5 essential hypertension-patient will remain on his present medications, blood pressure will be monitored #6 hyperlipidemia-patient will remain on a statin Total clinical time spent by myself addressing the patient's medical issues, reviewing all of his data, and collaborating with patient's care team: 35 minutes Charges/Coding Visit Charges Inpatient E&M: 52839 Subs Hosp L2
[2023-02-14] VITALS (12 sets, daily range): BP systolic 104–139; BP diastolic 64–87; PULSE 68–77; RESP 14–18; TEMP 35.9–36.6; O2SAT 90–99; BMI 33.1
[2023-02-14] MEDS: Enoxaparin 100 MG/ML Syringe SC ×2 (05:03→18:15)
[2023-02-14 06:06] LABS: International Normalized Ratio 1.8; Prothrombin Time (Protime)PT. 21.4 SECONDS (11.7-14.9)
[2023-02-14] MEDS: Spironolactone 25 MG Tablet PO (09:06)
[2023-02-14] MEDS: Potassium Chloride Oral Tablet 20 MEQ 40 MEQ PO (09:06)
[2023-02-14] MEDS: Lisinopril 40 MG Tablet PO (09:06)
[2023-02-14] MEDS: Pantoprazole Sodium 20 MG Tablet PO (09:06)
[2023-02-14] MEDS: amLODIPine 10 MG Tablet PO (09:07)
[2023-02-14] MEDS: Pravastatin 40 MG Tablet PO (09:07)
[2023-02-14] MEDS: Metoprolol(XL)Succ 100 MG Tablet PO (09:07)
[2023-02-14] MEDS: Escitalopram Oxalate 10 MG Tablet PO (09:07)
[2023-02-14] MEDS: Fluticasone 0.05% 1 SPRAY NASAL.SRY NASAL (09:12)
--- NOTE | 2023-02-14 18:02 | PCM.PN.HOSP ---
Reason for Visit Reason for Visit: Diagnoses Essential (primary) hypertension (02/12/23) Heart failure, unspecified (02/12/23) Acute respiratory failure with hypoxia (02/12/23) Subjective Subjective She was seen and examined today, he states he feels better, he still requiring 5 L of oxygen via nasal cannula however. Patient's INR was low this morning, I gave him additional warfarin and increased his daily warfarin dose. Patient still remains on Lasix drip Objective Data Objective Data Vital Signs: Vital Signs Temp Pulse Resp BP Pulse Ox O2 Del Method O2 Flow Rate 97.9 F 69 14 104/87 H 99 Nasal Cannula 5 02/14/23 15:27 02/14/23 15:27 02/14/23 15:27 02/14/23 15:27 02/14/23 15:27 02/14/23 15:28 02/14/23 15:28 FiO2 35 02/13/23 04:09 Oxygen Flow Rate (L/min) 5 Oxygen Delivery Method Nasal Cannula Weight: 90.3 kg Body Mass Index (BMI) 33.1 Intake & Output: Intake and Output for Last 24 Hours 02/12/23 02/13/23 02/14/23 23:59 23:59 23:59 Intake Total 590.3 / 590.3 930 / 930 0 / 0 Output Total 2400 / 2400 2575 / 2575 Balance -1809.7 / -1809.7 -1645 / -1645 0 / 0 Lab / Micro Data 02/12/23 04:19 02/13/23 05:30 Labs: Laboratory Results - last 24 hr 02/14/23 05:27: PT 21.4 H, INR 1.8 Physical Exam Narrative alert, oriented x3, no apparent distress and average body habitus General Appearance: cooperative, well kempt and well developed Orientation / Consciousness: awake, oriented to person, oriented to place and oriented to time HEENT normocephalic, head/scalp atraumatic and moist oral mucous membranes Eyes PERRL, EOMs intact bilaterally and conjunctivae normal Neck supple, no JVD, thyroid normal and no carotid bruits General: trachea midline Resp normal respiratory effort, no retractions and no use of accessory muscles Resp Narrative: Decreased breath sounds were noted bilaterally over the lower lung field Auscultation: rales localized (Over the lower lobes bilaterally); Negative for rhonchi or wheezes Cardio regular rate, regular rhythm, S1 normal heart sound, S2 normal heart sound, no rub and no gallops Cardio Narrative: Extrasystolic beats are noted GI normal to inspection, nondistended, normoactive bowel sounds, soft to palpation, non-tender and non-distended Extremity Extremity Narrative: Generalized lower leg edema is noted bilaterally Skin no rashes or lesions noted General Skin Exam: no breakdown Neuro oriented x3, CN's II-XII intact bilaterally, moves all extremities, no focal motor deficits and no sensory deficits noted Sensorium / Orientation: awake, alert, oriented to person, oriented to place and oriented to time Speech: speech normal Psych affect normal Assessment & Plan Assessment/Plan (1) Congestive heart failure: QUALIFIERS: Heart failure type: unspecified Heart failure chronicity: acute on chronic Qualified Code(s): I50.9 - Heart failure, unspecified PLAN: Plan 1. Acute on chronic systolic congestive heart failure-continue AMINA inhibitor, beta-armond, IV diuresis with continuous IV Lasix, and Aldactone at this time, chest x-ray will be repeated tomorrow, labs will be repeated tomorrow #2 acute hypoxic respiratory failure-secondary to #1, patient's pulse ox will continue to be monitored, patient's oxygen demand at the time of this dictation is 5 L #3 pulmonary hypertension-IV diuresis we will continue #4 coronary artery disease by history-patient has a past history of coronary artery bypass grafting, I talked to his family practice physician and besides his echocardiogram which was performed the first part of January of this year, the family practitioner does not have record of a previous echocardiogram. Patient may need to further work-up when he has stabilized such as an outpatient stress test. #5 essential hypertension-patient will remain on his present medications, blood pressure will be monitored #6 hyperlipidemia-patient will remain on a statin Total clinical time spent by myself addressing the patient's medical issues, reviewing all of his data, and collaborating with patient's care team: 35 minutes Charges/Coding Visit Charges Inpatient E&M: 30961 Subs Hosp L2
[2023-02-15] VITALS (14 sets, daily range): BP systolic 100–122; BP diastolic 58–74; PULSE 66–73; RESP 14–20; TEMP 36.3–36.8; O2SAT 86–99; BMI 31.8
[2023-02-15] MEDS: Furosemide 500 MG in Empty Viaflex 50 mL 1 EACH CONT INF (02:19)
[2023-02-15] MEDS: Enoxaparin 100 MG/ML Syringe SC ×2 (06:09→17:40)
--- NOTE | 2023-02-15 06:20 | RAD_ITS ---
STUDY: X-RAY CHEST REASON FOR EXAM: Male, 82 years old. Chest pain/pressure TECHNIQUE: PA and 2 lateral views of the chest. COMPARISON: 02/13/2023 FINDINGS: EKG leads overlie the chest Lungs are expanded. Mild overall improvement compared to the previous study with decreased opacifications in both lung douglass. Stable bilateral pleural effusions. Sternal cerclage wires and vascular clips are present from a prior sternotomy and coronary artery bypass graft procedure (CABG). Normal mediastinum and anant. Normal visualized pulmonary arteries. Normal visualized aortic arch and descending thoracic aorta. There are diffuse degenerative changes of the visualized thoracic spine. Normal visualized ribs, clavicles, and shoulders. There is no demonstrated abnormality of the visualized soft tissue structures of the upper abdomen. RAD/Chest PA and Lateral IMPRESSION: Mildly decreased opacifications in both lung douglass compared to the previous study with stable small bilateral pleural effusions. Continued follow-up recommended to ensure complete resolution Electronically Signed: Beni Juárez MD at 8:34 EDT ,
[2023-02-15 07:11] LABS: Anion Gap 7 (5-15); BUN 28 mg/dL (7-18); BUN/Creat Ratio 26.7 RATIO (10-20); Calcium,Total 9.2 mg/dL (8.5-10.1); Chloride 97 mmol/L (98-107); Creatinine, Serum 1.05 mg/dL (0.70-1.30); EST Glomerular Filtration Rate 72 mL/min (>60); Est Glom Filt Rate - Afr Amer 87 mL/min (>60); Glucose 93 mg/dL (74-106); Potassium 3.4 mmol/L (3.5-5.1); Sodium Level 139 mmol/L (136-145)
[2023-02-15] MEDS: Pantoprazole Sodium 20 MG Tablet PO (09:25)
[2023-02-15] MEDS: Fluticasone 0.05% 1 SPRAY NASAL.SRY NASAL (09:25)
[2023-02-15] MEDS: Lisinopril 40 MG Tablet PO (09:26)
[2023-02-15] MEDS: amLODIPine 10 MG Tablet PO (09:26)
[2023-02-15] MEDS: Metoprolol(XL)Succ 100 MG Tablet PO (09:26)
[2023-02-15] MEDS: Escitalopram Oxalate 10 MG Tablet PO (09:26)
[2023-02-15] MEDS: Pravastatin 40 MG Tablet PO (09:26)
[2023-02-15] MEDS: Potassium Chloride Oral Tablet 20 MEQ 40 MEQ PO ×2 (09:26→14:14)
[2023-02-15] MEDS: Spironolactone 25 MG Tablet PO (09:26)
[2023-02-15] MEDS: Loperamide 2 MG Capsule PO (11:27)
--- NOTE | 2023-02-15 14:00 | CASEMGMT ---
Addendum entered by Maryam Bui 02/15/23 15:43: DAMON JOSEPH back into pt room, pt states that as long as the doctor feels he should have HHC, he is agreeable and he asked DAMON JOSEPH to speak to dr. DAMON JOSEPH spoke with hospitalist who states this would be beneficial for monitoring of fluid on legs and lungs. Relayed info to pt, he chose [facility]. He is aware referral will be made today and he will hear from them not likely until Friday. Pt verbalizes understanding and is agreeable to this. Referral sent for SN, PT and OT. Original Note: DAMON JOSEPH into pt room, pt sitting up in chair with at bedside and family came in as well. Discussed HHC with pt, pt agreeable to this. Patient was provided a list of HHC providers including quality and resource use data and consistent with the patient?s preferred geographic region, medical needs, and insurance network were provided from the [employer] Guide. Pt to review list and DAMON JOSEPH to check back.
[2023-02-15] MEDS: Methylcellulose 2 GM Bottle PO ×2 (14:13→21:01)
[2023-02-15] MEDS: Furosemide 20 MG/2 ML VIAL IV ×2 (14:21→21:01)
--- NOTE | 2023-02-15 18:23 | PN.HOSP_ITS ---
Reason for Visit Reason for Visit: Diagnoses Essential (primary) hypertension (02/12/23) Heart failure, unspecified (02/12/23) Acute respiratory failure with hypoxia (02/12/23) Subjective Subjective Patient was seen and examined today, he was able to be weaned to room air at rest, patient still requires oxygen on ambulation however. I have decided to take the patient off his Lasix drip today and put him on IV Lasix. Patient has lost a considerable amount of weight since he has been in the [facility]. Objective Data Objective Data Vital Signs: Vital Signs Temp Pulse Resp BP Pulse Ox O2 Del Method O2 Flow Rate 97.9 F 71 20 H 113/64 94 Room Air 1 02/15/23 17:00 02/15/23 17:00 02/15/23 17:00 02/15/23 17:00 02/15/23 17:00 02/15/23 17:00 02/15/23 11:28 FiO2 35 02/13/23 04:09 Oxygen Flow Rate (L/min) 1 Oxygen Delivery Method Room Air Weight: 86.9 kg Body Mass Index (BMI) 31.8 Intake & Output: Intake and Output for Last 24 Hours 02/13/23 02/14/23 02/15/23 23:59 23:59 23:59 Intake Total 930 / 930 600 / 700 587.59 / 587.59 Output Total 2575 / 2575 1200 / 1900 2500 / 2500 Balance -1645 / -1645 -600 / -1200 -1912.41 / -1912.41 Lab / Micro Data 02/12/23 04:19 02/15/23 05:35 Labs: Laboratory Results - last 24 hr 02/15/23 05:35: PT 23.0 H, INR 2.0, Sodium 139, Potassium 3.4 L, Chloride 97 L, Carbon Dioxide 35.0 H, Anion Gap 7, BUN 28 H, Creatinine 1.05, Estim Creat Clear Calc 48.00, Est GFR (MDRD) Af Amer 87, Est GFR (MDRD) Non-Af 72, BUN/Creatinine Ratio 26.7 H, Glucose 93, Calcium 9.2 Radiography Diagnostic Testing: Radiology Impression Chest X-Ray 02/15/23 06:20 IMPRESSION: Mildly decreased opacifications in both lung duoglass compared to the previous study with stable small bilateral pleural effusions. Continued follow-up recommended to ensure complete resolution Electronically Signed: Beni Juárez MD at 8:34 EDT , Physical Exam Narrative alert, oriented x3, no apparent distress and average body habitus General Appearance: cooperative, well kempt and well developed Orientation / Consciousness: awake, oriented to person, oriented to place and oriented to time HEENT normocephalic, head/scalp atraumatic and moist oral mucous membranes Eyes PERRL, EOMs intact bilaterally and conjunctivae normal Neck supple, no JVD, thyroid normal and no carotid bruits General: trachea midline Resp normal respiratory effort, no retractions and no use of accessory muscles Resp Narrative: Decreased breath sounds were noted bilaterally over the lower lung field Auscultation: rales localized (Over the lower lobes bilaterally); Negative for rhonchi or wheezes Cardio regular rate, regular rhythm, S1 normal heart sound, S2 normal heart sound, no rub and no gallops Cardio Narrative: Extrasystolic beats are noted GI normal to inspection, nondistended, normoactive bowel sounds, soft to palpation, non-tender and non-distended Extremity Extremity Narrative: Generalized lower leg edema is noted bilaterally Skin no rashes or lesions noted General Skin Exam: no breakdown Neuro oriented x3, CN's II-XII intact bilaterally, moves all extremities, no focal motor deficits and no sensory deficits noted Sensorium / Orientation: awake, alert, oriented to person, oriented to place and oriented to time Speech: speech normal Psych affect normal Assessment & Plan Assessment/Plan (1) Congestive heart failure: QUALIFIERS: Heart failure type: unspecified Heart failure chronicity: acute on chronic Qualified Code(s): I50.9 - Heart failure, unspecified PLAN: Plan 1. Acute on chronic systolic congestive heart failure-continue AMINA inhibitor, beta-armond, IV diuresis with IV Lasix, and Aldactone at this time, chest x-ray today appear to be improved #2 acute hypoxic respiratory failure-secondary to #1, patient's pulse ox will continue to be monitored, patient is currently on room air #3 pulmonary hypertension-IV diuresis we will continue #4 coronary artery disease by history-patient has a past history of coronary artery bypass grafting, I talked to his family practice physician and besides his echocardiogram which was performed the first part of January of this year, the family practitioner does not have record of a previous echocardiogram. Patient may need to further work-up when he has stabilized such as an outpatient stress test. #5 essential hypertension-patient will remain on his present medications, blood pressure will be monitored #6 hyperlipidemia-patient will remain on a statin Total clinical time spent by myself addressing the patient's medical issues, reviewing all of his data, and collaborating with patient's care team: 35 minutes Charges/Coding Visit Charges Inpatient E&M: 99822 Subs Hosp L2
[2023-02-16] VITALS (7 sets, daily range): BP systolic 114–118; BP diastolic 52–71; PULSE 75–83; RESP 18; TEMP 36.3–36.8; O2SAT 89–98; BMI 32.1
--- NOTE | 2023-02-16 04:46 | NURSING ---
increased O2 to 3L d/t desaturations into mid 80's while sleeping
[2023-02-16 06:15] LABS: International Normalized Ratio 2.7; Prothrombin Time (Protime)PT. 28.8 SECONDS (11.7-14.9)
[2023-02-16] MEDS: Enoxaparin 100 MG/ML Syringe SC (06:20)
[2023-02-16] MEDS: Methylcellulose 2 GM Bottle PO (06:20)
[2023-02-16] MEDS: Lisinopril 40 MG Tablet PO (09:19)
[2023-02-16] MEDS: Pravastatin 40 MG Tablet PO (09:19)
[2023-02-16] MEDS: Fluticasone 0.05% 1 SPRAY NASAL.SRY NASAL (09:19)
[2023-02-16] MEDS: amLODIPine 10 MG Tablet PO (09:19)
[2023-02-16] MEDS: Spironolactone 25 MG Tablet PO (09:19)
[2023-02-16] MEDS: Metoprolol(XL)Succ 100 MG Tablet PO (09:20)
[2023-02-16] MEDS: Pantoprazole Sodium 20 MG Tablet PO (09:20)
[2023-02-16] MEDS: Furosemide 20 MG/2 ML VIAL IV (09:20)
[2023-02-16] MEDS: Potassium Chloride Oral Tablet 20 MEQ 40 MEQ PO (09:20)
[2023-02-16] MEDS: Escitalopram Oxalate 10 MG Tablet PO (09:20)
--- NOTE | 2023-02-16 10:38 | DCINST_ITS ---
Discharge Instructions Diet Discharge Diet: No restrictions Activity Discharge Activity: Return to Normal Activity Weight Bearing Status: Full weight bearing Follow Up Care Test Results: Test results from this visit will be discussed in further detail at your follow- up appointment, if applicable. Discharge Plan Admission Admit Date/Time: 02/12/23 02:14 Primary Reason for Your Visit: congestive heart failure, respiratory failure Attending Provider: Aren Tracy Primary Care Provider: Florentino Bernard Consulting Providers: Kyle Werner Discharge Orders/Prescriptions Prescriptions: New loperamide 2 mg Capsule 2 mg PO Q6H PRN PRN (Reason: Diarrhea) Qty: 0 0RF spironolactone 25 mg Tablet 25 mg PO DAILY Qty: 30 0RF Fiber Therapy (m-cell/sugar) 2 gram/19 gram Powder 2 g PO TID Qty: 0 0RF potassium chloride [K-Tab] 10 mEq tablet extended release 20 meq PO DAILY Qty: 60 0RF furosemide [Lasix] 40 mg tablet 40 mg PO BID Qty: 60 0RF Continued metoprolol succinate 100 MG tablet extended release 24 hr 100 mg PO DAILY amlodipine 10 MG tablet 10 mg PO DAILY warfarin [Jantoven] 5 MG tablet 5 mg PO DAILY nitroglycerin 0.4 MG tablet, sublingual 0.4 mg sublingual PRN PRN (Reason: CHEST PAIN) omeprazole 20 MG capsule 20 mg PO DAILY lisinopril 40 MG tablet 40 mg PO DAILY fluticasone propionate 1 SPRAY spray,suspension 1 spray intranasal DAILY escitalopram oxalate 10 mg tablet 10 mg PO DAILY Patient Comments: Take 1 tablet by mouth once daily. pravastatin 40 mg tablet 40 mg PO DAILY Patient Comments: Take 1 tablet by mouth daily at bedtime. For cholesterol Discontinued furosemide 40 mg tablet 40 mg PO DAILY Patient Comments: Take 1 tablet by mouth once daily. triamterene-hydrochlorothiazid 37.5-25 mg tablet 1 tab PO DAILY Patient Comments: TAKE 1 TABLET BY MOUTH DAILY Referrals / Follow Up: Marek Diaz MD [Med Staff - Active Staff] - See Referral Note (as scheduled) Florentino Bernard MD [Primary Care Provider] - In 1 Week Disposition Disposition (needs filled in before D/C Order can be placed): Home, Self Care
--- NOTE | 2023-02-16 10:59 | PCM.DC.SUM ---
Providers Date of Admission: 02/12/23 Date of Discharge: 02/16/23 Primary Care Physician: Dr. Florentino Bernard MD Reason For Visit: ACUTE HYPOXEMIC RESPIRATORY FAILURE Diagnosis Discharge Diagnosis (1) Congestive heart failure: Status: Acute Code(s): I50.9 - Heart failure, unspecified Qualifiers: Heart failure chronicity: acute on chronic Heart failure type: unspecified Qualified Code(s): I50.9 - Heart failure, unspecified Plan 1. Acute on chronic systolic congestive heart failure-continue AMINA inhibitor, beta-armond, IV diuresis with IV Lasix, and Aldactone at this time, chest x-ray today appear to be improved #2 acute hypoxic respiratory failure-secondary to #1, patient's pulse ox will continue to be monitored, patient is currently on room air #3 pulmonary hypertension-IV diuresis we will continue #4 coronary artery disease by history-patient has a past history of coronary artery bypass grafting, I talked to his family practice physician and besides his echocardiogram which was performed the first part of January of this year, the family practitioner does not have record of a previous echocardiogram. Patient may need to further work-up when he has stabilized such as an outpatient stress test. #5 essential hypertension-patient will remain on his present medications, blood pressure will be monitored #6 hyperlipidemia-patient will remain on a statin #6 hypokalemia Total clinical time spent by myself addressing the patient's medical issues, reviewing all of his data, and collaborating with patient's care team: 35 minutes Medications at Discharge Home Medications amlodipine 10 mg tablet 10 mg PO DAILY 10/15/18 fluticasone propionate 50 mcg/actuation nasal spray,suspension 1 spray intranasal DAILY 10/15/18 lisinopril 40 mg tablet 40 mg PO DAILY 10/15/18 metoprolol succinate 100 mg tablet,extended release 24 hr 100 mg PO DAILY 10/15/18 nitroglycerin 0.4 mg sublingual tablet 0.4 mg sublingual PRN PRN CHEST PAIN 10/15/18 omeprazole 20 mg capsule,delayed release 20 mg PO DAILY 10/15/18 warfarin 5 mg tablet (Jantoven) 5 mg PO DAILY 10/15/18 escitalopram oxalate 10 mg tablet 10 mg PO DAILY 02/12/23 pravastatin 40 mg tablet 40 mg PO DAILY 02/12/23 furosemide 40 mg tablet (Lasix) 40 mg PO BID #60 tabs 02/16/23 loperamide 2 mg capsule 2 mg PO Q6H PRN PRN Diarrhea #0 caps 02/16/23 methylcellulose (with sugar) 2 gram/19 gram oral powder (Fiber Therapy (methylcellulose-sugar)) 2 g PO TID #0 grams 02/16/23 potassium chloride 10 mEq tablet,extended release (K-Tab) 20 meq (2 x 10 mEq) PO DAILY #60 tabs 02/16/23 spironolactone 25 mg tablet 25 mg PO DAILY #30 tabs 02/16/23 Hospital Course Operations None Procedures None Summary of Care Provided Minutes Spent on Discharge: 31 Hospital Course: This 82-year-old white male was seen in the emergency room at [facility] with a chief complaint of shortness of breath which had increased over the last 24 hours and increased edema of the lower extremity. Patient been treated as an outpatient for presumed CHF by his PCP, he had an echocardiogram done earlier in January of this year which showed an EF of 40 to 45% with severe pulmonary hypertension and moderate mitral regurg. Patient had chest x-ray in the emergency room which showed patchy left basilar atelectasis versus consolidative pneumonia, cardiomegaly was noted to be present with trace pleural effusions. Patient CBC was unremarkable, chemistry profile showed a potassium of 3.3 with a BUN of 20, beta nitric peptide was 933.9. EKG showed no acute ischemic changes and a normal sinus rhythm with occasional ectopic beats. Patient was admitted to PCU, he was placed on IV diuresis and his medications were adjusted, repeat echocardiogram was not felt necessary, over the next several days the patient received IV diuresis first through IV push Lasix and then through continuous Lasix drip. He lost quite a bit of weight and his lower extremity edema resolved. Patient was weaned off oxygen, at times during his hospital stay he was on as much as 6 L of oxygen via nasal cannula. On 02/16/2023, patient was seen and examined: On examination he appeared in good health and spirits. Vital signs as documented. Skin warm and dry and without overt rashes. Neck without JVD, neck was supple, trachea midline, thyroid was normal. Lungs clear bilaterally, normal air movement was noted. Heart exam notable for regular rhythm, normal sounds and absence of murmurs, rubs or gallops. Abdomen unremarkable and without evidence of organomegaly, masses, or abdominal aortic enlargement. Bowel sounds are present, abdomen is not distended. Extremities nonedematous, no cyanosis was noted, no clubbing was noted. Neuro: Cranial nerves II through XII are grossly intact, no focal motor deficits were noted, sensation to light touch and pinprick intact, motor exam 5/5 throughout. Psych: Patient is alert and oriented x3, he does not appear anxious or depressed, he does not appear agitated. Patient appears stable for discharge on 02/16/2023, he did not require home oxygen at the time of discharge from the hospital. Weight / BMI Weight Weight: 87.4 kg Body Mass Index (BMI) 32.1 ABG / Lab / Microbiology Data 02/12/23 04:19 02/15/23 05:35 Laboratory: Laboratory Results - last 24 hr 02/16/23 05:33: PT 28.8 H, INR 2.7 D/C Instructions Discharge Diet: No restrictions Weight Bearing Status: Full weight bearing Meaningful Use Info Meaningful Use Diagnoses (Choose all that apply): CHF CHF AMINA/ARB ordered at discharge?: Yes Documented LVEF (%): 40 Discharge Plan Admission Admit Date/Time: 02/12/23 02:14 Primary Reason for Your Visit: congestive heart failure, respiratory failure Attending Provider: Aren Tracy Primary Care Provider: Florentino Bernard Consulting Providers: Kyle Werner Discharge Orders/Prescriptions Prescriptions: New loperamide 2 mg Capsule 2 mg PO Q6H PRN PRN (Reason: Diarrhea) Qty: 0 0RF spironolactone 25 mg Tablet 25 mg PO DAILY Qty: 30 0RF Fiber Therapy (m-cell/sugar) 2 gram/19 gram Powder 2 g PO TID Qty: 0 0RF potassium chloride [K-Tab] 10 mEq tablet extended release 20 meq PO DAILY Qty: 60 0RF furosemide [Lasix] 40 mg tablet 40 mg PO BID Qty: 60 0RF Continued metoprolol succinate 100 MG tablet extended release 24 hr 100 mg PO DAILY amlodipine 10 MG tablet 10 mg PO DAILY warfarin [Jantoven] 5 MG tablet 5 mg PO DAILY nitroglycerin 0.4 MG tablet, sublingual 0.4 mg sublingual PRN PRN (Reason: CHEST PAIN) omeprazole 20 MG capsule 20 mg PO DAILY lisinopril 40 MG tablet 40 mg PO DAILY fluticasone propionate 1 SPRAY spray,suspension 1 spray intranasal DAILY escitalopram oxalate 10 mg tablet 10 mg PO DAILY Patient Comments: Take 1 tablet by mouth once daily. pravastatin 40 mg tablet 40 mg PO DAILY Patient Comments: Take 1 tablet by mouth daily at bedtime. For cholesterol Discontinued furosemide 40 mg tablet 40 mg PO DAILY Patient Comments: Take 1 tablet by mouth once daily. triamterene-hydrochlorothiazid 37.5-25 mg tablet 1 tab PO DAILY Patient Comments: TAKE 1 TABLET BY MOUTH DAILY Referrals / Follow Up: Marek Diaz MD [Med Staff - Active Staff] - See Referral Note (as scheduled) Florentino Bernard MD [Primary Care Provider] - In 1 Week Disposition Disposition (needs filled in before D/C Order can be placed): Home, Self Care Charges/Coding Visit Charges Inpatient E&M: 37381 Disch Hosp >30min
--- NOTE | 2023-02-17 14:43 | CASEMGMT ---
[facility] can accept pt for SOC tomorrow. They will notify pt.
== END 2023-02-16 12:28 | disposition home or self-care (01) | DRG 291 ==
LOC: ED 02-12 02:13 → PCU 02-12 02:47
PROVIDERS: Admitting Provider Hospitalist; Emergency Provider Emergency Medicine; PCP Internal Medicine; Visit Provider Internal Medicine
DX: I11.0 Hypertensive heart disease with heart failure (principal); J96.01 Acute respiratory failure with hypoxia; I50.23 Acute on chronic systolic (congestive) heart failure; D68.59 Other primary thrombophilia; I48.91 Unspecified atrial fibrillation; I27.20 Pulmonary hypertension, unspecified; K21.9 Gastro-esophageal reflux disease without esophagitis; I25.10 Atherosclerotic heart disease of native coronary artery without angina pectoris; E87.6 Hypokalemia; E78.5 Hyperlipidemia, unspecified; Z79.2 Long term (current) use of antibiotics; Z95.1 Presence of aortocoronary bypass graft
CPT/HCPCS: 36415; 71045; 71046; 80048; 80053; 83880; 84484; 85025; 85027; 85610; 93005; 94002; 94003; 94640; 94762; 97110; 97162; 97166; 97530; 97535; 97802; 99285; A4216; J1940

== ENCOUNTER → 2023-03-13 | Outpatient (CLI) | payer MEDICARE, OTHER, SELFPAY ==
[2023-03-13 11:56] LABS: Anion Gap 4 (5-15); BUN 54 mg/dL (7-18); BUN/Creat Ratio 31.8 RATIO (10-20); Calcium,Total 9.6 mg/dL (8.5-10.1); Chloride 101 mmol/L (98-107); EST Glomerular Filtration Rate 41 mL/min (>60); Est Glom Filt Rate - Afr Amer 50 mL/min (>60); Glucose 71 mg/dL (74-106); Potassium 4.8 mmol/L (3.5-5.1); Sodium Level 134 mmol/L (136-145)
== END | disposition home or self-care (01) ==
LOC: LAB 10:54
PROVIDERS: PCP Internal Medicine; Referring Provider Internal Medicine Cardiovascular Disease; Visit Provider Internal Medicine Cardiovascular Disease
DX: I48.0 Paroxysmal atrial fibrillation (principal); I50.9 Heart failure, unspecified; I11.0 Hypertensive heart disease with heart failure; I25.10 Atherosclerotic heart disease of native coronary artery without angina pectoris
CPT/HCPCS: 36415; 80048

== ENCOUNTER → 2023-03-26 | Outpatient (CLI) | payer MEDICARE, OTHER, SELFPAY ==
[2023-03-26 11:16] LABS: Anion Gap 5 (5-15); BUN 30 mg/dL (7-18); BUN/Creat Ratio 23.1 RATIO (10-20); Calcium,Total 9.2 mg/dL (8.5-10.1); Chloride 100 mmol/L (98-107); EST Glomerular Filtration Rate 56 mL/min (>60); Est Glom Filt Rate - Afr Amer 68 mL/min (>60); Glucose 84 mg/dL (74-106); Potassium 4.7 mmol/L (3.5-5.1); Sodium Level 133 mmol/L (136-145)
== END | disposition home or self-care (01) ==
LOC: LAB 09:32
PROVIDERS: PCP Internal Medicine; Referring Provider Physician Assistant Medical; Visit Provider Physician Assistant Medical
DX: I50.22 Chronic systolic (congestive) heart failure (principal)
CPT/HCPCS: 36415; 80048

== ENCOUNTER → 2023-04-04 | Outpatient (CLI) | payer MEDICARE, OTHER, SELFPAY ==
--- NOTE | 2023-04-04 06:37 | CDU_ITS ---
Reason For Study: Lightheadedness Rt. Velocities/BP Lt. Velocities/BP Prox CCA 65.5/8.8 cm/sec. Prox CCA 82.5/11.6 cm/sec. Mid CCA 62.6/11.6 cm/sec. Mid CCA 86.1/12.4 cm/sec. Dist CCA 60.7/10.7 cm/sec. Dist CCA 64.1/9.7 cm/sec. Prox ICA 53.2/9.7 cm/sec. Prox ICA 77.3/11.3 cm/sec. Mid ICA 69.2/14.5 cm/sec. Mid ICA 105.8/25.6 cm/sec. Dist ICA 51.7/13.3 cm/sec. Dist ICA 112.1/23.7 cm/sec. Rt. ICA/CCA = 1.11. Lt. ICA/CCA = 1.36. Prox ECA 84.4/4.1 cm/sec. Prox ECA 88.3/2.5 cm/sec. Rt. Vert. 47.4/11.6 cm/sec. Lt. Vert. 29.1/8.1 cm/sec. Right Extracranial There is homogeneous, smooth atherosclerotic plaque noted in the right common carotid artery. There is homogeneous, smooth atherosclerotic plaque noted in the right internal carotid artery. There is heterogeneous, irregular atherosclerotic plaque noted in the right external carotid artery. Antegrade flow is noted in the right vertebral artery. Left Extracranial There is homogeneous, smooth atherosclerotic plaque noted in the left common carotid artery. There is heterogeneous, irregular atherosclerotic plaque noted in the left internal carotid artery. The atherosclerotic plaque causes acoustic shadowing. There is intimal thickening but no significant atherosclerotic plaque noted in the left external carotid artery. Antegrade flow is noted in the left vertebral artery. Procedure Carotid Duplex 46793. This is a Carotid Duplex examination using B-mode, color flow and specral Doppler. Exam performed in department. VL/Carotid Duplex Ultrasound Interpretation Summary Mild (<50%) stenosis right extracranial internal carotid. Mild (<50%) stenosis left extracranial internal carotid. Patent and antegrade vertebrals bilaterally. Ordering Physician: Sydney Strange Referring Physician: Florentino Bernard M.D. Performed By: Cecilia Preciado RVT
--- NOTE | 2023-04-07 12:35 | STRESSREP ---
Stress Test Report Date: 04/04/2023 Procedure: Pharmacologic stress nuclear imaging study Indications: History of CAD, congestive heart failure Consent: Per the patient Procedure: The patient underwent pharmacologic (Regadenoson 0.4mg ) evaluation with a peak heart rate of 80 beats per minute (57%predicted maximal heart rate) and a peak blood pressure of 112/80 mmHg. The baseline ECG demonstrated sinus rhythm. The peak pharmacologic ECG demonstrated no ischemic change. Occasional PVCs noted. There was no complaint of chest discomfort during pharmacologic infusion or recovery. The patient was injected with 11.2 millicuries of technetium 99m Cardiolite and subsequently rest SPECT Cardiolite nuclear imaging was obtained in the horizontal long, vertical long, and short axis views. The patient underwent pharmacologic (Regadenoson) evaluation. The patient was injected with 35.0 millicuries of technetium 99m Cardiolite and subsequently stress SPECT Cardiolite nuclear imaging was obtained in the horizontal long, vertical long, and short axis views. A gated Cardiolite study at peak stress was obtained. The examination was stopped secondary to completion of protocol. 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 There is also reduced perfusion of the inferior wall post Lexiscan suggestive of mild inferior reversible ischemia. There is end systolic thickening and brightening. The gated Cardiolite study demonstrates myocardial thickening and inward wall motion. The reported LVEF is 49%. Impression: 1. Pharmacologic (Regadenoson) evaluation 2. Peak pharmacologic ECG with no ischemic changes. 3. Occasional PVCs noted with Lexiscan infusion. 5. Reversible inferior and apical defect suggestive of ischemia. 6. The gated Cardiolite study reports an LVEF of 49%. This note was generated with [employer] software. It may contain incorrect words, spelling, and punctuation that were not noted in checking the note before signing.
== END | disposition home or self-care (01) ==
PROVIDERS: PCP Internal Medicine; Referring Provider Internal Medicine Cardiovascular Disease; Visit Provider Internal Medicine Cardiovascular Disease
DX: I11.0 Hypertensive heart disease with heart failure (principal); I50.9 Heart failure, unspecified; R42 Dizziness and giddiness; I25.10 Atherosclerotic heart disease of native coronary artery without angina pectoris; E78.5 Hyperlipidemia, unspecified
CPT/HCPCS: 78452; 93017; 93880; A9500; A4216; J2785

== ENCOUNTER 2023-04-23 07:36 | Day surgery (SDC) | payer MEDICARE, OTHER, SELFPAY ==
[2023-04-16 09:55] LABS: Absolute Lymphocyte Count 1.67 X10^3/uL (0.83-4.51); Absolute Neutrophil Count 4.3 X10^3/uL (2.0-7.7); Basophil# 0.06 X10^3/uL; Basophil% 0.8 % (0-1); Eosinophil# 0.29 X10^3/uL; Hematocrit 43.7 % (40-54); Lymphocyte # 1.67 X10^3/ul (0.83-4.51); Lymphocyte % 22.9 % (19-41); Mean Corpuscular Hgb 28.9 pg (27.0-32.0); Mean Corpuscular Volume 90.1 fL (80-94); Monocyte# 0.98 X10^3/uL; Monocyte% 13.4 % (0-10); NRBC Flagged by Analyzer 0 % (0-5); Neutrophil # 4.25 X10^3/uL (2.7-7.7); Neutrophil % 58.4 % (47-70); Platelet Count 247 K/mm3 (150-450); RBC Distribution Width CV 14.7 % (11.6-14.6); Red Blood Count 4.85 M/mm3 (4.6-6.2); White Blood Count 7.3 K/mm3 (4.4-11.0)
[2023-04-16 10:22] LABS: International Normalized Ratio 1.3; Prothrombin Time (Protime)PT. 16.4 SECONDS (11.7-14.9)
[2023-04-16 10:23] LABS: Partial Thromboplast Time 28.5 Seconds (24.1-36.2)
[2023-04-16 10:31] LABS: Anion Gap 4 (5-15); BUN 36 mg/dL (7-18); BUN/Creat Ratio 28.1 RATIO (10-20); Calcium,Total 9.5 mg/dL (8.5-10.1); Chloride 102 mmol/L (98-107); Creatinine, Serum 1.28 mg/dL (0.70-1.30); EST Glomerular Filtration Rate 57 mL/min (>60); Est Glom Filt Rate - Afr Amer 69 mL/min (>60); Glucose 98 mg/dL (74-106); Potassium 4.8 mmol/L (3.5-5.1); Sodium Level 134 mmol/L (136-145)
--- NOTE | 2023-04-16 21:50 | PCM.HP.BLA ---
History and Physical Date of Admission: 04/23/23 This patient has history of coronary artery disease status post four-vessel CABG in 1995 with a LYON to the LAD and vein grafts to the diagonal, obtuse marginal PDA and posterior lateral branch. He was recently admitted to the hospital with systolic congestive heart failure. His medications were optimized and discharged home. Presently patient is denying any chest pains either at rest or with exertion. Denies any shortness of breath. Denies orthopnea. No PND. No ankle edema. Patient also has history of atrial fibrillation and is on warfarin for that. No history of CVA or TIA. Patient's last echocardiogram was on January 31, 2023. Systolic ejection fraction of approximately 40%. Moderate mitral valve regurgitation was noted. Moderately severe aortic valve stenosis was also noted. Right ventricular systolic pressure was 66 mmHg. Intake Vital Signs: See EMR Intake Visit Reasons: C [employer] Required: No Is patient in pain?: No Allergies cephalexin [From Keflex] Adverse Reaction (Mild, Verified 03/13/23 10:04) Diarrhe alabetalol [From Trandate] Adverse Reaction (Mild, Verified 03/13/23 10:04) Angioedema prochlorperazine [From Compazine] Adverse Reaction (Mild, Verified 03/13/23 10:04) Other ibuprofen Adverse Reaction (Verified 03/13/23 10:04) Other Medications See EMR Ejection fraction %: 40 to 44 [facility] Medical History (Updated 03/13/23 @ 10:[address] Sydney Strange MD) ASHD (arteriosclerotic heart disease) Atherosclerosis of coronary artery of [place] heart without angina pectoris Atrial fibrillation BPH (benign prostatic hyperplasia) CHF (congestive heart failure) Essential hypertension GERD (gastroesophageal reflux disease) Glucose intolerance (impaired glucose tolerance) Meniere disease Mixed hyperlipidemia Myocardial infarct Osteoarthritis Paroxysmal atrial fibrillation Surgical History (Updated 03/13/23 @ 10:[address] Sydney Strange MD) BCC (basal cell carcinoma) History of colonoscopy History of detached retina repair History of esophagogastroduodenoscopy (EGD) History of left heart catheterization (05/06/96) History of tonsillectomy Hx of CABG (05/12/96) Family History Father Colon cancerMother CAD (coronary artery disease) CABGAunt CAD (coronary artery disease) Myocardial infarctionUncle CAD (coronary artery disease) Myocardial infarction Social History (Updated 03/13/23 @ 10:10 by Radha Gutiérrez) Smoking Status: Never smoker alcohol intake: current alcohol intake frequency: holidays/special occasions only substance use type: does not use caffeine: No ROS Const Const: Positive for daytime sleepiness; Negative for fatigue, weakness, headache(s), frequent falls, difficulty sleeping or excessive sweating Eyes Eyes: Negative for loss of peripheral vision, transient loss of vision, blurry vision, double vision or tunnel vision ENT ENT: Positive for balance problems (going to PT); Negative for headache(s), dizziness or Nosebleed/epistaxis Cardio Chest Pain: No Palpitations: No Edema: None Muscle aches with walking: None Resp Respiratory: Negative for SOB with activity, SOB at rest, SOB orthopnea\SOB lying down, Cough or paroxysmal nocturnal dyspnea GI GI: Negative nausea, vomiting, heartburn or black,tarry stools : Negative for hematuria Musc Musc: Positive for joint pain and balance problems (going to PT); Negative for muscle aches/ myalgia or muscle weakness Skin Skin: Negative non-healing lesions, rash or unusual bruising Neuro Neuro: Negative for dizziness, lightheadedness, near syncope, syncope, frequent falls, headache(s), weakness, blurry vision, double vision or lack of coordination Leroy Hematologic/Lymphatic: Negative for easy bleeding or easy bruising Endo Endo: Negative for fatigue, excessive sweating or increased thirst/drinking Psych Psych: Negative for anxiety or depression Allergy Allergy/Immunology: Negative for hives and Negative for rash Cardiology Exam Const Appearance: comfortable and no acute distress Nutritional Appearance: well nourished Neck Neck: no JVD Carotids: Negative bruit Chest Auscultation: Bilateral: Clear to Auscultation Cardio Rhythm: irregularly irregular Heart sounds: S1 normal and S2 normal 2/6 systolic murmur at apex Neuro General: patient alert, patient awake and patient oriented x3 Extremities Lower Extremity Edema: None: Bilateral Supplemental Info Supplemental Information Echocardiogram 01/31/2023 CONCLUSIONS: - Technically difficult exam due to body habitus. - Exam indication: Initial evaluation of Heart Failure - The left ventricle is normal in size. Left ventricular systolic function is moderately decreased. EF = 40 ? 5% (visual est.) Indeterminate left ventricular diastolic dysfunction. Global LV systolic dysfunction - The right ventricle is normal in size. Right ventricular systolic function is low normal. - The left atrial cavity is moderately dilated. - There is moderate (2+) mitral valve regurgitation. Regurgitant orifice area (PISA) is 0.20 cm?. - There is low flow, low gradient, low EF, moderately severe aortic valve stenosis. AV area is 0.94 cm? (0.44 cm?/m?) by continuity, VTI. The peak gradient is 19 mmHg, the mean gradient is 10 mmHg and the dimensionless valve index is 0.24. - Estimated right ventricular systolic pressure is 66 mmHg consistent with moderately severe pulmonary hypertension. Estimated right atrial pressure is 3 mmHg (although IVC not seen). - Definity unavailable. - The patient has not had a prior CC echocardiographic exam for comparison. Assessment and Plan Assessment and Plan (1) Coronary artery disease: Status: Chronic Plan: History of CABG in 1995. Recent echocardiogram with mildly decreased left ventricular systolic function. Stress test from 04/07/2023 showed reversible inferior and apical defect suggestive of ischemia. He will proceed with heart catheterization and depending on results, further recommendation will be made. (2) Hx of CABG: Status: Acute Comment: LYON to LAD, SVG to diagonal, SVG to LCx, SVG to PDA and posterolateral Cx 05/12/96 Plan: See #1 above. (3) Chronic systolic (congestive) heart failure: Status: Chronic Plan: Continue AMINA inhibitor and beta-blockers. Add SGLT2 inhibitor. Continue Aldactone. (4) Mitral regurgitation: Status: Chronic Plan: Moderate mitral valve regurgitation noted. Continue afterload reduction. Periodic echo and clinical surveillance. (5) Aortic valve stenosis: Status: Chronic Plan: Echo shows moderately severe aortic valve stenosis. However it was noted to be a technically difficult study. Will check cardiac MRI to evaluate aortic valve stenosis as well as mitral regurgitation. (6) Pulmonary hypertension: Status: Chronic Plan: Continue to monitor. (7) Essential hypertension: Status: Chronic Plan: Controlled. Blood pressure at goal. (8) Atrial fibrillation: Status: Chronic Plan: Ventricular rate controlled. Continue warfarin (9) Dyslipidemia: Status: Chronic Plan: Continue to manage as per primary care physician.
[2023-04-22 07:40] VITALS: BMI 30.2
[2023-04-23 07:46] LABS: INR Fingerstick 1.1
--- NOTE | 2023-04-23 12:14 | CL.D_ITS ---
Patient Name: DESI SANDERS Study Date: 04/23/2023 Performing: Sydney Strange MD Ht: 65 inches 165.1 cm : 1940 Wt: 181.99 lbs 82.55 kg Age: 82 Gender: male BSA: 1.9 PROCEDURE(S) PERFORMED [id number])LHC/COR/CABG CLINICAL PROFILE AND INDICATIONS Indications: LV Dysfunction Heart Failure: None Stress/Imaging Stress Test w/SPECT MPI: Yes Result: Positive Intermediate RiskStress Test with SPECT MPI: Positive Intermediate Risk CAD Presentations: No Sxs, no angina. CONCLUSIONS CEMENT RUBBER Prox/Mid LAD; LYON to LAD patent SVG to D1 100%; D1 filling retrogradely via collaterals from RPDA CEMENT RUBBER ostial LCX; SVG to OM patent Prox RCA CEMENT RUBBER; SVG to RPDA patent with 50% degenerated lesion distally RECOMMENDATIONS Medical therapy DESCRIPTION OF PROCEDURE The patient arrived to the procedure lab. The risks and benefits of the procedure as well as a full description of our services here and current unavailability of surgical backup were fully explained to the patient and/or their significant other prior to the catheterization. The Timeout was completed, verifying the correct patient and procedure. The patient's procedural site was prepped and draped in the usual fashion. Local anesthetic was given subcutaneously to right radial region with Lidocaine 2%. Local anesthetic was given subcutaneously to left radial region with Lidocaine 2%. Using a modified Seldinger technique, arterial access was obtained via the right radial artery, a 6Fr sheath was inserted., arterial access was obtained via the left radial artery, a 6Fr sheath was inserted. Left Coronary Artery selective angiography was performed in multiple views using a 5 Fr. 4.0 Bohannon catheter. Saphenous Vein graft to the DIAG 1 selective angiography was performed in multiple views using a 5 Fr. 4.0 Bohannon catheter-occluded. Right Coronary Artery selective angiography was then performed in multiple views using a 5 Fr. 4.0 Bohannon catheter. Saphenous Vein graft to the RPDA selective angiography was performed in multiple views using a 5 Fr. 4.0 Bohannon catheter. Saphenous Vein graft to the OM 1 selective angiography was performed in multiple views using a 5 Fr. 4.0 Bohannon catheter. Left internal mammary artery graft to the LAD selective angiography was performed in multiple views using a 5 Fr. IM catheter.The arterial sheath was pulled and a TR Band was applied for hemostasis-R radial -ml air. The arterial sheath was pulled and a TR Band was applied for hemostasis-L radial-11ml air CORONARY ANGIOGRAPHY DOMINANCE: Right Dominant LEFT HEART ASSESSMENT Left Ventricular Ejection Fraction: Not assessed LEFT ANTERIOR DESCENDING ARTERY: LAD: Calcified 100% Proximal lesion in LAD CIRCUMFLEX ARTERY: CIRCUMFLEX: Calcified 100% Ostial lesion in Circumflex RIGHT CORONARY ARTERY: RCA: Calcified 100% Proximal lesion in RCA GRAFTS: SVG Graft to 1st Diagonal Complex 100% lesion in SVG Graft to 1st Diagonal SVG Graft to Right PDA Complex 50% lesion in SVG Graft to Right PDA SVG Graft to 1st OM LYON Graft to LAD COLLATERAL FLOW: Collateral flow from Right PDA to 1st Diagonal COMPLICATIONS No Complications PROCEDURE MEDICATIONS Versed 1 mg IV Fentanyl 50 mcg IV Aspirin (325mg) 1 Tabs PO @ 04/23/2023 09:15:11 Heparin given IA- R radial 04/23/2023 10:41:07 Heparin 3000 unit(s) IV 04/23/2023 11:14:16 Heparin given IA- L radial 04/23/2023 11:31:53 Verapamil 2.5mg, Ntg 200mcgs, 2000 units of Heparin given IA- R radial 04/23/2023 10:41:07 IV Fluids: .9 NaCl IV started @ 100 ml/hr 04/23/2023 11:07:55 SUMMARY OF HEMODYNAMIC DATA Time AIR REST ECG 08:11:35 AO 151/65 (100) SA 11:08:58 AIR REST 12:13:27 Signed By Sydney Strange MD On 04/23/2023 12:13:43 Sydney Strange MD
== END 2023-04-23 13:40 | disposition home or self-care (01) ==
LOC: CLSP 07:37
PROVIDERS: Physician Assistant Medical; PCP Internal Medicine; Referring Provider Internal Medicine Cardiovascular Disease; Visit Provider Internal Medicine Cardiovascular Disease
DX: I25.10 Atherosclerotic heart disease of native coronary artery without angina pectoris (principal); I11.0 Hypertensive heart disease with heart failure; I50.22 Chronic systolic (congestive) heart failure; I48.0 Paroxysmal atrial fibrillation; E78.2 Mixed hyperlipidemia; N40.0 Benign prostatic hyperplasia without lower urinary tract symptoms; K21.9 Gastro-esophageal reflux disease without esophagitis; H81.09 Meniere's disease, unspecified ear; I25.2 Old myocardial infarction; M19.90 Unspecified osteoarthritis, unspecified site; Z79.899 Other long term (current) drug therapy; Z85.828 Personal history of other malignant neoplasm of skin; Z82.49 Family history of ischemic heart disease and other diseases of the circulatory system; Z79.01 Long term (current) use of anticoagulants; Z95.1 Presence of aortocoronary bypass graft
CPT/HCPCS: 36415; 36416; 80048; 85025; 85610; 85730; 93455; 99152; 99153; J7040; Q9967; C1769; C1894

== ENCOUNTER → 2023-08-28 | Outpatient (CLI) | payer MEDICARE, OTHER, SELFPAY ==
[2023-08-28 11:18] LABS: Hematocrit 42.3 % (40-54); Hemoglobin 13.8 g/dL (13.0-16.5); Mean Corp Hgb Conc 32.6 g/dL (32-36); Mean Corpuscular Hgb 29.5 pg (27.0-32.0); Mean Corpuscular Volume 90.4 fL (80-94); Platelet Count 192 K/mm3 (150-450); RBC Distribution Width CV 13.2 % (11.6-14.6); RBC Distribution Width SD 43.5 fl (35.1-43.9); Red Blood Count 4.68 M/mm3 (4.6-6.2); White Blood Count 7.5 K/mm3 (4.4-11.0)
[2023-08-28 11:42] LABS: BNP,B-Type NATRIURETIC PEPTIDE 315.3 pg/mL (0-100)
[2023-08-28 11:46] LABS: Anion Gap 2 (5-15); BUN 33 mg/dL (7-18); BUN/Creat Ratio 31.1 RATIO (10-20); Chloride 102 mmol/L (98-107); Creatinine, Serum 1.06 mg/dL (0.70-1.30); EST Glomerular Filtration Rate 71 mL/min (>60); Est Glom Filt Rate - Afr Amer 86 mL/min (>60); Glucose 79 mg/dL (74-106); Potassium 4.2 mmol/L (3.5-5.1); Sodium Level 133 mmol/L (136-145)
== END | disposition home or self-care (01) ==
LOC: LAB 10:10
PROVIDERS: PCP Internal Medicine; Referring Provider Physician Assistant Medical; Visit Provider Physician Assistant Medical
DX: S21.101A Unspecified open wound of right front wall of thorax without penetration into thoracic cavity, initial encounter (principal); I50.22 Chronic systolic (congestive) heart failure; L08.9 Local infection of the skin and subcutaneous tissue, unspecified; N28.9 Disorder of kidney and ureter, unspecified
CPT/HCPCS: 36415; 80048; 83880; 85027

== ENCOUNTER 2024-09-21 10:12 | Outpatient (CLI) | payer MEDICARE, OTHER, SELFPAY ==
[2024-09-21 18:58] LABS: ALB/GLOB Ratio 1.1 RATIO (0.9-2.4); AST(SGOT) 15 U/L (<=37); Alanine Aminotransfer ALT/SGPT 11 U/L (<=46); Albumin, Serum 4.1 g/dL (3.4-4.8); Alkaline Phosphatase 82 U/L (40-129); Anion Gap 9 (5-15); BUN 25 mg/dL (4-19); BUN/Creat Ratio 20.2 RATIO (10-20); Calcium 9.7 mg/dL (7.6-11.0); Carbon Dioxide 26.6 mmol/L (22.0-29.0); Chloride 99 mmol/L (96-108); Creatinine, Serum 1.2 mg/dL (0.8-1.3); EST Glomerular Filtration Rate 59 (>60); Globulin 3.8 g/dL (2.2-4.2); Glucose 84 mg/dL (70-99); Potassium 4.7 mmol/L (3.3-5.1); Protein, Total 7.8 g/dL (5.9-8.4); Sodium Level 134 mmol/L (133-145); Total Bilirubin 0.64 mg/dL (0.00-1.30)
[2024-09-22 12:00] LABS: Cholesterol 176 mg/dL (<=200); High Density Lipoprotein 36 mg/dL; Low Density Lipoprotein Calc. 106 mg/dL; Triglycerides 170 mg/dL; Very Low Density Lipoprotein 34 mg/dL (5-40); cholesterol:hdl ratio screen 4.86
== END 2024-09-21 23:59 | disposition home or self-care (01) ==
LOC: LAB 10:15
PROVIDERS: PCP Internal Medicine; Referring Provider Internal Medicine Cardiovascular Disease; Visit Provider Internal Medicine Cardiovascular Disease
DX: E78.00 Pure hypercholesterolemia, unspecified (principal); I48.0 Paroxysmal atrial fibrillation; R06.09 Other forms of dyspnea; I35.0 Nonrheumatic aortic (valve) stenosis; Z95.1 Presence of aortocoronary bypass graft; I10 Essential (primary) hypertension
CPT/HCPCS: 36415; 80053; 80061

== ENCOUNTER → 2024-11-10 | Outpatient (CLI) | payer MEDICARE, OTHER, SELFPAY ==
--- NOTE | 2024-11-10 09:46 | CDU_ITS ---
Reason For Study Reason For Study: Mild carotid stenosis Rt. Velocities/BP Lt. Velocities/BP Prox CCA 49.4/12.6 cm/sec. Prox CCA 93.7/12.6 cm/sec. Mid CCA 59.8/10.7 cm/sec. Mid CCA 87.6/9 cm/sec. Dist CCA 59.8/8.8 cm/sec. Dist CCA 70.4/7.7 cm/sec. Prox ICA 49.4/7.8 cm/sec. Prox ICA 72.8/11.4 cm/sec. Mid ICA 45.8/11.2 cm/sec. Mid ICA 115.6/22.5 cm/sec. Dist ICA 54.1/12.6 cm/sec. Dist ICA 91.9/15.2 cm/sec. Rt. ICA/CCA = 0.90. Lt. ICA/CCA = 1.32. Prox ECA 85/6.9 cm/sec. Prox ECA 80.2/5.3 cm/sec. Rt. Vert. 51.3/12.6 cm/sec. Lt. Vert. 25.8/7.3 cm/sec. Right Extracranial There is homogeneous, smooth atherosclerotic plaque noted in the right common carotid artery. There is heterogeneous, irregular atherosclerotic plaque noted in the right internal carotid artery. There is heterogeneous, irregular atherosclerotic plaque noted in the right external carotid artery. Antegrade flow is noted in the right vertebral artery. Left Extracranial There is heterogeneous, irregular atherosclerotic plaque noted in the left common carotid artery. There is heterogeneous, irregular atherosclerotic plaque noted in the left internal carotid artery. The atherosclerotic plaque causes acoustic shadowing. There is intimal thickening but no significant atherosclerotic plaque noted in the left external carotid artery. Antegrade flow is noted in the left vertebral artery. Procedure Carotid Duplex [id number]. This is a Carotid Duplex examination using B-mode, color flow and specral Doppler. Exam performed in department. VL/Carotid Duplex Ultrasound Interpretation Summary Mild (<50%) stenosis right extracranial internal carotid. Mild (<50%) stenosis left extracranial internal carotid. Patent and antegrade vertebrals bilaterally. Ordering Physician: Sydney Strange Referring Physician: Florentino Bernard M.D. Performed By: Cecilia Preciado RVT
== END | disposition home or self-care (01) ==
LOC: CVS 09:44
PROVIDERS: PCP Internal Medicine; Referring Provider Internal Medicine Cardiovascular Disease; Visit Provider Internal Medicine Cardiovascular Disease
DX: I65.23 Occlusion and stenosis of bilateral carotid arteries (principal); I77.9 Disorder of arteries and arterioles, unspecified
CPT/HCPCS: 93880

== ENCOUNTER → 2025-04-25 | Outpatient (CLI) | payer MEDICARE, OTHER, SELFPAY ==
[2025-04-25 15:12] LABS: AST(SGOT) 15 U/L (<=37); Alanine Aminotransfer ALT/SGPT 9 U/L (<=46); Albumin, Serum 4.1 g/dL (3.4-4.8); Alkaline Phosphatase 69 U/L (40-129); Bilirubin, Direct 0.31 mg/dL (0.00-0.30); Globulin 3.6 g/dL (2.2-4.2)
[2025-04-25 15:13] LABS: Anion Gap 13 (5-15); BUN 38 mg/dL (4-19); BUN/Creat Ratio 27.4 RATIO (10-20); Calcium,Total 9.3 mg/dL (7.6-11.0); Carbon Dioxide 20.2 mmol/L (21.0-32.0); Chloride 102 mmol/L (98-108); Glucose 85 mg/dL (70-99); Potassium 4.8 mmol/L (3.3-5.1); Pro- Brain NATRIURETIC PEPTIDE 2218 pg/mL (<=1800)
== END | disposition home or self-care (01) ==
LOC: LAB 13:46
PROVIDERS: Nurse Practitioner Family; PCP Internal Medicine; Referring Provider Internal Medicine Cardiovascular Disease; Visit Provider Internal Medicine Cardiovascular Disease
DX: R06.02 Shortness of breath (principal); E78.00 Pure hypercholesterolemia, unspecified; R06.09 Other forms of dyspnea
CPT/HCPCS: 36415; 80048; 80076; 83880

== ENCOUNTER → 2025-05-02 | Outpatient (CLI) | payer MEDICARE, OTHER, SELFPAY ==
[2025-05-02 10:56] LABS: Anion Gap 13 (5-15); BUN 59 mg/dL (4-19); BUN/Creat Ratio 32.8 RATIO (10-20); Calcium,Total 10.0 mg/dL (7.6-11.0); Carbon Dioxide 21.6 mmol/L (21.0-32.0); Chloride 97 mmol/L (98-108); Cholesterol 147 mg/dL (<=200); Glucose 105 mg/dL (70-99); Low Density Lipoprotein Calc. 79 mg/dL; Potassium 5.3 mmol/L (3.3-5.1); Triglycerides 162 mg/dL; Very Low Density Lipoprotein 32 mg/dL (5-40); cholesterol:hdl ratio screen 4.11
== END | disposition home or self-care (01) ==
LOC: LAB 10:11
PROVIDERS: PCP Internal Medicine; Referring Provider Internal Medicine Cardiovascular Disease; Visit Provider Internal Medicine Cardiovascular Disease
DX: I10 Essential (primary) hypertension (principal); I25.10 Atherosclerotic heart disease of native coronary artery without angina pectoris
CPT/HCPCS: 36415; 80048; 80061

== ENCOUNTER → 2025-05-09 | Outpatient (CLI) | payer MEDICARE, OTHER, SELFPAY ==
[2025-05-09 15:50] LABS: Pro- Brain NATRIURETIC PEPTIDE 3099 pg/mL (<=1800)
[2025-05-09 15:54] LABS: Anion Gap 11 (5-15); BUN 60 mg/dL (4-19); BUN/Creat Ratio 38.0 RATIO (10-20); Calcium,Total 9.5 mg/dL (7.6-11.0); Carbon Dioxide 22.0 mmol/L (21.0-32.0); Chloride 103 mmol/L (98-108); Glucose 93 mg/dL (70-99); Potassium 4.7 mmol/L (3.3-5.1)
== END | disposition home or self-care (01) ==
PROVIDERS: PCP Internal Medicine; Referring Provider Nurse Practitioner Gerontology; Visit Provider Nurse Practitioner Gerontology
DX: I50.9 Heart failure, unspecified (principal)
CPT/HCPCS: 36415; 80048; 83880